=== PATIENT | female | born 1935 | race African-American/Black ===

== ENCOUNTER 2017-04-20 04:49 | Inpatient (IN) | payer OTHER ==
[~2017-04-20] VITALS: Ht 162.6 cm; Wt 49.0 kg
--- NOTE | ~2017-04-20 | EKG ---
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 CHAMPAGNE : 1935 Requested By: Philip Rajan Order Number: [id number] MD: Derrell Velez Measurements Intervals [place] Rate: 69 P: 80 IN: 134 QRS: 26 QRSD: 87 T: 39 QT: 362 QTc: 388 Interpretive Statements Sinus rhythm RSR' in V1 or V2, probably normal variant Baseline wander in lead(s) V5 No previous ECG available for comparison Electronically Signed On 04-20-2017 9:05:00 MACHINE SKIVER by Derrell Velez [email or web address] <ELECTRONICALLY SIGNED> By: Derrell Velez MD, [facility] 04/20/17904 0507 0507 Derrell Velez MD, [facility] /EPI
[~2017-04-20 04:49] MED LIST: ACIDOPHILUS1 EAC3 PO; ALAVERT10 MG PO; AZOR 5-20 MG T1 EACH PO; CALCIUM 500 +1 EAC4 PO; CALCIUM 600 +1 EAC1 PO; COD LIVER OIL1 EAC4 PO; FOLIC ACID 40400 MC1 PO; HYDROCODON-ACE1 EAC7 PO; HYDROXYCHLOROQ200 M1 PO; LOTREL 5-20 MG1 EACH PO; METHOTREXATE 22.5 M1 PO; METOPROLOL SUCC25 M1 PO; MULTIVITAMINS PO; PREDNISONE 1 MG1 M1 PO; TRAMADOL 50 MG50 MG PO; VITAMIN D31000 UNI2 PO
[2017-04-20 05:06] VITALS: BP 143/65
[2017-04-20 05:34] LABS: HEMATOCRIT 40.1 % (37.0-47.0); HEMOGLOBIN 13.1 gm/dL (12.0-15.0); MCH 27.1 pg (26.0-34.0); MCHC 32.7 g/dL (28.0-37.0); RBC 4.83 mil/uL (4.20-5.00); RDW 16.1 % (10.5-14.5); WBC 9.8 thou/uL (4.0-11.0)
[2017-04-20 05:42] LABS: ANION GAP 5 mmol/L (7-16); BUN 24 mg/dL (7-18); CALCIUM 10.6 mg/dL (8.5-10.1); CHLORIDE 102 mmol/L (98-107); CO2 30 mmol/L (21-32); CREATININE 1.1 mg/dL (0.6-1.0); GLUCOSE 93 mg/dL (74-106); POTASSIUM 4.2 mmol/L (3.5-5.1); SODIUM 137 mmol/L (136-145)
[2017-04-20 05:51] LABS: ALBUMIN 3.4 g/dL (3.4-5.0); LIPASE 1248 U/L (73-393); SGOT 20 U/L (15-37); SGPT 18 U/L (30-65); TOTAL BILIRUBIN 0.5 mg/dL (<0.1-1.0); TOTAL PROTEIN 7.8 g/dL (6.4-8.2); TROPONIN-I < 0.04 ng/mL (<0.06)
[2017-04-20 07:20] VITALS: BP 168/73
[2017-04-20 11:00] VITALS: BP 143/67
[2017-04-20 15:14] VITALS: BP 143/67
[2017-04-20 15:45] VITALS: BP 149/77
[2017-04-20 20:00] VITALS: BP 132/72
[2017-04-21 04:30] VITALS: BP 143/73
[2017-04-21 05:57] LABS: ABSOLUTE NEUTROPHILS 6.7 thou/uL (1.4-8.2); BASOPHILS 0.3 % (0.0-2.0); EOSINOPHILS 0.4 % (0.0-3.0); HEMATOCRIT 34.6 % (37.0-47.0); HEMOGLOBIN 11.6 gm/dL (12.0-15.0); LYMPHOCYTES 14.1 % (24.0-44.0); MCH 27.8 pg (26.0-34.0); MCHC 33.5 g/dL (28.0-37.0); MCV 83.1 fL (80.0-100.0); MONOCYTES 10.3 % (1.0-8.0); PLATELET COUNT 148 thou/uL (150-400); POLYS 74.9 % (36.0-66.0); RBC 4.17 mil/uL (4.20-5.00); RDW 16.4 % (10.5-14.5)
[2017-04-21 06:04] LABS: CALCIUM 8.8 mg/dL (8.5-10.1); MAGNESIUM 1.5 mg/dL (1.8-2.4); POTASSIUM 3.7 mmol/L (3.5-5.1)
[2017-04-21 08:36] VITALS: BP 131/67
[2017-04-21 13:15] VITALS: BP 143/71
[2017-04-21 17:03] VITALS: BP 143/82
[2017-04-21 20:15] VITALS: BP 153/70
[2017-04-22 03:40] VITALS: BP 141/79
[2017-04-22 05:30] LABS: ABSOLUTE NEUTROPHILS 9.6 thou/uL (1.4-8.2); BASOPHILS 0.3 % (0.0-2.0); EOSINOPHILS 0.2 % (0.0-3.0); HEMATOCRIT 37.1 % (37.0-47.0); HEMOGLOBIN 11.9 gm/dL (12.0-15.0); LYMPHOCYTES 8.6 % (24.0-44.0); MCV 84.2 fL (80.0-100.0); MONOCYTES 6.8 % (1.0-8.0); PLATELET COUNT 158 thou/uL (150-400); POLYS 84.1 % (36.0-66.0); RDW 16.4 % (10.5-14.5); WBC 11.4 thou/uL (4.0-11.0)
[2017-04-22 07:05] VITALS: BP 140/65
[2017-04-22 15:45] VITALS: BP 137/64
[2017-04-22] MEDS ORDERED: ZOFRAN ODT4 MG DISSOLVE (17:02)
[2017-04-22 17:27] VITALS: BP 137/64
[2017-04-22 17:43] VITALS: BP 137/64
[2017-08-29] MEDS ORDERED: PREDNISONE 5 MG5 M1 PO (14:31)
[2017-08-29] MEDS ORDERED: OMEPRAZOLE40 MG PO (14:33)
[2017-08-29] MEDS ORDERED: COLESTID5 GM PO (14:34)
[2017-08-29] MEDS ORDERED: METHOTREXATE 22.5 MG PO (14:34)
[2017-08-29] MEDS ORDERED: PEPCID40 MG PO (14:35)
== END 2017-04-22 18:33 | disposition home or self-care (01) | DRG 389 ==
LOC: ER 04:49 → EROBS 06:43 → 4E 06:43 → ENTRNSPT 04-22 18:13 → 4E 04-22 18:33
PROVIDERS: Emergency Medicine; Hospitalist; Nurse Practitioner
DX: K56.51 Intestinal adhesions [bands], with partial obstruction (principal); N17.9 Acute kidney failure, unspecified; K21.9 Gastro-esophageal reflux disease without esophagitis; M06.9 Rheumatoid arthritis, unspecified; E78.5 Hyperlipidemia, unspecified; K52.9 Noninfective gastroenteritis and colitis, unspecified; Z66 Do not resuscitate; I10 Essential (primary) hypertension; Z85.3 Personal history of malignant neoplasm of breast; Z90.49 Acquired absence of other specified parts of digestive tract; Z85.038 Personal history of other malignant neoplasm of large intestine; Z79.899 Other long term (current) drug therapy; Z87.891 Personal history of nicotine dependence; Z88.0 Allergy status to penicillin; Z88.8 Allergy status to other drugs, medicaments and biological substances
CPT/HCPCS: 10183

== ENCOUNTER → 2017-08-25 | Outpatient (CLI) | payer OTHER ==
[~2017-08-25] MED LIST changes: +COLESTID5 GM PO; +METHOTREXATE 22.5 MG PO; +OMEPRAZOLE40 MG PO; +PEPCID40 MG PO; +PREDNISONE 5 MG5 M1 PO; +ZOFRAN ODT4 MG DISSOLVE
--- NOTE | ~2017-08-25 | EKG ---
[address] [place] [address] ELECTROCARDIOGRAM REPORT Name: LORI ZAZUETA Room #: [facility]#: [id number] Admission: 08/25/17 Attend Phys: Kunal Marin MD Discharge: Date of : 37 Report #: [id number] THIS REPORT FOR: //name// [facility] [place] Test Date: 2017-08-25 Test Time: 13:11:15 Pat Name: LORI ZAZUETA Department: Room: Gender: F Plastic Technician: Barbara SÁNCHEZ : 1935 Requested By: Kunal Marin Order Number: [id number] MD: Derrell Velez Measurements Intervals [place] Rate: 62 P: 70 IA: 131 QRS: 56 QRSD: 81 T: 46 QT: 387 QTc: 393 Interpretive Statements Sinus rhythm Atrial premature complexes Borderline low voltage, extremity leads Compared to ECG 04/20/2017 05:07:44 Atrial premature complex(es) now present Electronically Signed On 08-26-2017 7:30:13 CDT by Derrell Velez [email or web address] <ELECTRONICALLY SIGNED> By: Derrell Velez MD, [facility] 08/26/17 07 10 10 Derrell Velez MD, [facility] /EPI
== END ==
LOC: CV 12:36
DX: I10 Essential (primary) hypertension (principal)

== ENCOUNTER 2017-08-30 05:27 | Day surgery (SDC) | payer OTHER ==
[~2017-08-30] VITALS: Ht 165.1 cm; Wt 40.4 kg
[2017-08-30 08:42] LABS: HEMOGLOBIN 12.1 gm/dL (12.0-15.0); MCH 30.1 pg (26.0-34.0); MCHC 33.6 g/dL (28.0-37.0); MCV 89.7 fL (80.0-100.0); RBC 4.01 mil/uL (4.20-5.00); RDW 19.7 % (10.5-14.5); WBC 5.3 thou/uL (4.0-11.0)
[2017-08-30 08:55] LABS: CALCIUM 8.8 mg/dL (8.5-10.1); CREATININE 1.1 mg/dL (0.6-1.0); POTASSIUM 3.8 mmol/L (3.5-5.1)
[2017-08-30 09:01] LABS: ALBUMIN 3.3 g/dL (3.4-5.0); TOTAL BILIRUBIN 0.6 mg/dL (<0.1-1.0); TOTAL PROTEIN 6.5 g/dL (6.4-8.2)
[2017-08-30 09:27] VITALS: BP 129/70
[2017-08-30 11:30] VITALS: BP 129/70
== END 2017-08-30 12:30 | disposition home or self-care (01) ==
LOC: OR 05:27 → TBA 05:28 → OR 12:30
PROVIDERS: Surgery
DX: Z45.2 Encounter for adjustment and management of vascular access device (principal); K56.690 Other partial intestinal obstruction; E43 Unspecified severe protein-calorie malnutrition; I10 Essential (primary) hypertension; D64.9 Anemia, unspecified; K52.9 Noninfective gastroenteritis and colitis, unspecified; E78.5 Hyperlipidemia, unspecified; K21.9 Gastro-esophageal reflux disease without esophagitis; M06.9 Rheumatoid arthritis, unspecified; Z90.49 Acquired absence of other specified parts of digestive tract; Z98.0 Intestinal bypass and anastomosis status; Z87.891 Personal history of nicotine dependence; Z85.038 Personal history of other malignant neoplasm of large intestine; Z98.890 Other specified postprocedural states; Z85.3 Personal history of malignant neoplasm of breast; Z79.899 Other long term (current) drug therapy; Z88.0 Allergy status to penicillin; Z88.8 Allergy status to other drugs, medicaments and biological substances
CPT/HCPCS: 50010; 50101; 50386; 50403; 51938; 54118; 56524; 56525; 62110; 62850; 70005

== ENCOUNTER 2017-09-07 12:35 | Inpatient (IN) | payer OTHER ==
[~2017-09-07] VITALS: Ht 152.4 cm; Wt 50.1 kg
[2017-09-07 13:10] VITALS: BP 106/48
[2017-09-07] MEDS ORDERED: PREDNISONE 1 MG1 M1 PO (13:23)
[2017-09-07] MEDS ORDERED: CIMZIA400 MG/2 M SUBQ (13:24)
[2017-09-07] MEDS ORDERED: ZYRTEC10 M4 PO (13:26)
[2017-09-07] MEDS ORDERED: ZOFRAN ODT4 MG DISSOLVE (13:52)
[2017-09-07] MEDS ORDERED: PEPCID20 MG PO (13:52)
[2017-09-07 15:03] LABS: ABSOLUTE NEUTROPHILS 4.2 thou/uL (1.4-8.2); BASOPHILS 0.4 % (0.0-2.0); EOSINOPHILS 0.2 % (0.0-3.0); HEMATOCRIT 30.3 % (37.0-47.0); HEMOGLOBIN 10.3 gm/dL (12.0-15.0); LYMPHOCYTES 8.1 % (24.0-44.0); MCH 30.7 pg (26.0-34.0); MCV 90.4 fL (80.0-100.0); MONOCYTES 3.1 % (1.0-8.0); PLATELET COUNT 41 thou/uL (150-400); POLYS 88.2 % (36.0-66.0); RBC 3.36 mil/uL (4.20-5.00); RDW 18.4 % (10.5-14.5); WBC 4.7 thou/uL (4.0-11.0)
[2017-09-07 15:06] LABS: CALCIUM 8.6 mg/dL (8.5-10.1); CREATININE 1.1 mg/dL (0.6-1.0)
[2017-09-07 15:12] LABS: ALBUMIN 2.9 g/dL (3.4-5.0); TOTAL BILIRUBIN 0.7 mg/dL (<0.1-1.0); TOTAL PROTEIN 5.6 g/dL (6.4-8.2)
[2017-09-07 15:13] LABS: URINE BILIRUBIN NEGATIVE (Negative); URINE BLOOD NEGATIVE (Negative); URINE CLARITY CLEAR; URINE COLOR YELLOW; URINE GLUCOSE-RANDOM* NEGATIVE (Negative); URINE KETONES NEGATIVE (Negative); URINE LEUKOCYTES-REFLEX NEGATIVE (Negative); URINE NITRITE-REFLEX NEGATIVE (Negative); URINE PROTEIN (DIPSTICK) NEGATIVE (Negative); URINE SPECIFIC GRAVITY 1.025 (1.005-1.035); URINE UROBILINOGEN 0.2 E.U./dl (0.2-1.0)
[2017-09-07 15:43] LABS: PHOSPHORUS 3.1 mg/dL (2.5-4.9)
[2017-09-07 16:18] VITALS: BP 129/51
[2017-09-07 19:35] VITALS: BP 136/68
[2017-09-08 04:45] VITALS: BP 140/60
[2017-09-08 04:48] LABS: PHOSPHORUS 2.5 mg/dL (2.5-4.9)
[2017-09-08 07:30] VITALS: BP 144/63
[2017-09-08 09:33] LABS: CALCIUM 7.9 mg/dL (8.5-10.1); POTASSIUM 3.9 mmol/L (3.5-5.1)
[2017-09-08 20:23] VITALS: BP 127/82
[2017-09-09 07:15] VITALS: BP 130/71
[2017-09-09 07:25] LABS: CALCIUM 8.4 mg/dL (8.5-10.1); CREATININE 0.8 mg/dL (0.6-1.0); MAGNESIUM 1.7 mg/dL (1.8-2.4); POTASSIUM 3.7 mmol/L (3.5-5.1)
[2017-09-09 12:08] VITALS: BP 130/71
[2017-09-09 19:56] VITALS: BP 133/79
[2017-09-10 05:26] LABS: CALCIUM 7.8 mg/dL (8.5-10.1); CREATININE 0.8 mg/dL (0.6-1.0); MAGNESIUM 1.7 mg/dL (1.8-2.4); PHOSPHORUS 2.1 mg/dL (2.5-4.9); POTASSIUM 4.2 mmol/L (3.5-5.1)
[2017-09-10 07:45] VITALS: BP 127/63
[2017-09-10 20:45] VITALS: BP 139/59
[2017-09-11 06:26] LABS: CREATININE 0.9 mg/dL (0.6-1.0); MAGNESIUM 1.9 mg/dL (1.8-2.4); PHOSPHORUS 2.5 mg/dL (2.5-4.9); POTASSIUM 3.7 mmol/L (3.5-5.1)
[2017-09-11 08:09] VITALS: BP 122/69
[2017-09-11 20:42] VITALS: BP 116/62
[2017-09-12 08:23] VITALS: BP 143/74
[2017-09-12 08:33] LABS: CALCIUM 8.4 mg/dL (8.5-10.1); CREATININE 0.8 mg/dL (0.6-1.0); MAGNESIUM 1.7 mg/dL (1.8-2.4); PHOSPHORUS 2.7 mg/dL (2.5-4.9); POTASSIUM 3.6 mmol/L (3.5-5.1)
[2017-09-12 20:05] VITALS: BP 139/69
[2017-09-13 07:35] VITALS: BP 115/68
[2017-09-13 08:13] LABS: CALCIUM 7.9 mg/dL (8.5-10.1); CREATININE 0.7 mg/dL (0.6-1.0); PHOSPHORUS 2.7 mg/dL (2.5-4.9); POTASSIUM 3.6 mmol/L (3.5-5.1)
[2017-09-13 13:28] VITALS: BP 130/71
[2017-09-13 19:47] VITALS: BP 122/72
[2017-09-14 04:57] LABS: CALCIUM 7.9 mg/dL (8.5-10.1); CREATININE 0.9 mg/dL (0.6-1.0); POTASSIUM 3.7 mmol/L (3.5-5.1)
[2017-09-14 05:01] LABS: MAGNESIUM 1.8 mg/dL (1.8-2.4); PHOSPHORUS 3.2 mg/dL (2.5-4.9)
[2017-09-14 08:25] VITALS: BP 114/59
[2017-09-14 20:08] VITALS: BP 102/61
[2017-09-15 05:57] LABS: ALBUMIN 2.2 g/dL (3.4-5.0); CREATININE 0.8 mg/dL (0.6-1.0); MAGNESIUM 1.9 mg/dL (1.8-2.4); PHOSPHORUS 3.1 mg/dL (2.5-4.9); TOTAL BILIRUBIN 0.3 mg/dL (<0.1-1.0); TOTAL PROTEIN 4.8 g/dL (6.4-8.2)
[2017-09-15 07:20] VITALS: BP 112/66
[2017-09-15 21:38] VITALS: BP 129/64
[2017-09-16 06:01] LABS: CALCIUM 7.8 mg/dL (8.5-10.1); CREATININE 0.8 mg/dL (0.6-1.0); MAGNESIUM 2.1 mg/dL (1.8-2.4); PHOSPHORUS 2.4 mg/dL (2.5-4.9); POTASSIUM 4.3 mmol/L (3.5-5.1)
[2017-09-16 07:20] VITALS: BP 114/62
[2017-09-16 19:26] VITALS: BP 107/55
[2017-09-17 06:34] LABS: CALCIUM 8.1 mg/dL (8.5-10.1); CREATININE 0.9 mg/dL (0.6-1.0); MAGNESIUM 2.4 mg/dL (1.8-2.4); PHOSPHORUS 2.7 mg/dL (2.5-4.9); POTASSIUM 4.4 mmol/L (3.5-5.1)
[2017-09-17 07:53] VITALS: BP 115/62
== END 2017-09-17 14:06 | disposition home health service (06) | DRG 391 ==
LOC: 2N 12:35 → SICU 09-08 15:59
PROVIDERS: Hospitalist; Internal Medicine; Nurse Practitioner
PROC: 3E0336Z Introduction of Nutritional Substance into Peripheral Vein, Percutaneous Approach (ICD-10-PCS; principal; 2017-09-07)
DX: K91.2 Postsurgical malabsorption, not elsewhere classified (principal); E43 Unspecified severe protein-calorie malnutrition; N17.9 Acute kidney failure, unspecified; I42.9 Cardiomyopathy, unspecified; R62.7 Adult failure to thrive; M06.9 Rheumatoid arthritis, unspecified; K21.9 Gastro-esophageal reflux disease without esophagitis; D69.6 Thrombocytopenia, unspecified; E16.2 Hypoglycemia, unspecified; E83.42 Hypomagnesemia; Z66 Do not resuscitate; E83.39 Other disorders of phosphorus metabolism; I10 Essential (primary) hypertension; E78.5 Hyperlipidemia, unspecified; K52.9 Noninfective gastroenteritis and colitis, unspecified; Z85.038 Personal history of other malignant neoplasm of large intestine; Z85.3 Personal history of malignant neoplasm of breast; Z88.0 Allergy status to penicillin; Z88.8 Allergy status to other drugs, medicaments and biological substances; Z79.899 Other long term (current) drug therapy; Z90.49 Acquired absence of other specified parts of digestive tract; Z92.3 Personal history of irradiation; Z87.891 Personal history of nicotine dependence; Z68.21 Body mass index [BMI] 21.0-21.9, adult
CPT/HCPCS: 10797; 15002

== ENCOUNTER 2017-09-19 02:36 | Emergency (ER) | payer OTHER ==
[~2017-09-19] VITALS: Ht 162.6 cm; Wt 50.4 kg
--- NOTE | ~2017-09-19 | EKG ---
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 : 1935 Requested By: Karen Pena Order Number: [id number] MD: Derrell Velez Measurements Intervals [place] Rate: 72 P: 71 PA: 130 QRS: 37 QRSD: 82 T: 55 QT: 368 QTc: 403 Interpretive Statements Sinus rhythm Borderline low voltage, extremity leads Compared to ECG 08/25/2017 13:11:15 Atrial premature complex(es) no longer present Electronically Signed On 09-19-2017 8:45:32 CDT by Derrell Velez [email or web address] <ELECTRONICALLY SIGNED> By: Derrell Velez MD, [facility] 09/19/17 0845 9 9 Derrell Velez MD, [facility] /EPI
[~2017-09-19 02:36] MED LIST changes: +CIMZIA400 MG/2 M SUBQ; +PEPCID20 MG PO; +ZYRTEC10 M4 PO
[2017-09-19 03:17] LABS: HEMATOCRIT 27.8 % (37.0-47.0); HEMOGLOBIN 9.3 gm/dL (12.0-15.0); MCH 30.9 pg (26.0-34.0); MCHC 33.5 g/dL (28.0-37.0); MCV 92.3 fL (80.0-100.0); PLATELET COUNT 139 thou/uL (150-400); RBC 3.02 mil/uL (4.20-5.00); RDW 19.3 % (10.5-14.5); WBC 7.2 thou/uL (4.0-11.0)
[2017-09-19 03:25] LABS: CALCIUM 9.2 mg/dL (8.5-10.1); CREATININE 0.8 mg/dL (0.6-1.0); POTASSIUM 4.9 mmol/L (3.5-5.1)
[2017-09-19 03:34] LABS: TROPONIN-I 0.06 ng/mL (<0.06)
[2017-09-19 04:19] LABS: URINE BILIRUBIN NEGATIVE (Negative); URINE BLOOD NEGATIVE (Negative); URINE CLARITY CLEAR; URINE COLOR YELLOW; URINE GLUCOSE-RANDOM* NEGATIVE (Negative); URINE KETONES NEGATIVE (Negative); URINE LEUKOCYTES NEGATIVE (Negative); URINE NITRITE NEGATIVE (Negative); URINE PROTEIN (DIPSTICK) NEGATIVE (Negative); URINE SPECIFIC GRAVITY 1.015 (1.005-1.035); URINE UROBILINOGEN 0.2 E.U./dl (0.2-1.0)
[2017-09-19 04:30] LABS: ABSOLUTE NEUTROPHILS 4.8 thou/uL (1.4-8.2); ANISOCYTOSIS 2+
[2017-09-19 04:31] LABS: POLYCHROMASIA 1+
== END 2017-09-19 05:00 | disposition home or self-care (01) ==
LOC: ER 02:36
PROVIDERS: Emergency Medicine
DX: R60.0 Localized edema (principal); E46 Unspecified protein-calorie malnutrition; N18.3 Chronic kidney disease, stage 3 (moderate); E78.5 Hyperlipidemia, unspecified; M06.9 Rheumatoid arthritis, unspecified; R19.7 Diarrhea, unspecified; Z87.891 Personal history of nicotine dependence; Z88.0 Allergy status to penicillin; Z88.8 Allergy status to other drugs, medicaments and biological substances; Z85.038 Personal history of other malignant neoplasm of large intestine; Z85.3 Personal history of malignant neoplasm of breast; Z90.49 Acquired absence of other specified parts of digestive tract

== ENCOUNTER 2018-02-26 22:33 | Inpatient (IN) | payer OTHER ==
[~2018-02-26] VITALS: Ht 162.6 cm; Wt 55.8 kg
--- NOTE | ~2018-02-26 | HC ---
[facility] [place] [address] CONSULTATION Name: LORI ZAZUETA Room #: 363-P [facility] IN ..#: [id number] Admission: 02/26/18 Attend Phys: Sarah Alexandra Discharge: Date of : 37 Report #: [id number] THIS REPORT FOR: //name// CC: YSABEL physician/PCP Sarah Alexandra DATE OF SERVICE: 03/03/2018 HISTORY OF PRESENT ILLNESS: The patient is an 82-year-old -[place] female admitted with nausea, diarrhea. She has premorbid short gut syndrome and she has been on TPN at bedtime since last August. She was diagnosed with sepsis, pneumonia, and leuxt-jq-tshjxxb anemia. She does have a prior history of rheumatoid arthritis and is on methotrexate. She was seen by Surgery and felt to be too high risk for further surgery. Her stomach has not been decompressed with an NG tube, which was placed yesterday. She continues on TPN. Goal is once the NG tube was able to be removed that she would be started on a liquid diet. We are seeing her in rehabilitation medicine consultation. PAST MEDICAL HISTORY: Includes prior small-bowel obstruction with hemicolectomy, history of stress incontinent, chronic kidney disease stage 3. She had the breast CA and colon CA as noted above. Malnutrition with short gut syndrome, cachexia, rheumatoid arthritis on methotrexate, and chronic steroid usage. ALLERGIES: PENICILLIN AND SCOPOLAMINE. MEDICATIONS: Please see the full medication listing. This includes vitamins, herbals, and supplements. SOCIAL HISTORY: She lives in a house by herself, 5 steps in, premorbidly utilized a cane. There is a sister that lives in the area as well as her daughter and son-in-law. Daughter was visiting here. Plan is for the patient to go to the daughter's house once the patient is further medically stabilized. The daughter and son-in-law work different shifts. The patient was not on O2 premorbidly. REVIEW OF SYSTEMS: No current complaints of chest pain or shortness of breath. No current abdominal pain. She has had a past history of some dizziness. No current complaints. Complains of some overall generalized weakness, but no focal extremity pain complaints other than some of her chronic arthritic pain. With her history of rheumatoid arthritis. PHYSICAL EXAMINATION: GENERAL: She is a pleasant, thin 82-year-old -[place] female, appeared somewhat younger than stated age. VITAL SIGNS: Last recorded temperature 98.6, pulse 84, respirations 16, blood [address] [address] CONSULTATION Name: LORI ZAZUETA Room #: 363-P [facility] IN [facility]#: [id number] Admission: 02/26/18 Attend Phys: Sarah Alexandra Discharge: Date of : 37 Report #: [id number] pressure 154/83. She is alert, pleasant, and oriented. HEENT: Appeared to be benign. NEUROLOGIC: Cranial nerves are grossly intact. She is on 2 liters nasal cannula. She has some chronic arthritic changes of her hands. Functional range of motion of both upper extremities. Strength is grade 4-/5. She does have the NG tube currently in place. Lower extremities, no focal calf swelling, functional range of motion, strength is grade 4- to 3+/5. DTRs are trace to 1. She has been able to sit to stand with min assist and gait was 20 feet with front-wheeled walker with min assist. ASSESSMENT: An 82-year-old -[place] female with the following problem list: 1. Medical complexity with generalized debilitation. 2. Sepsis. 3. Pneumonia. 4. Bgjax-jy-aotsgvp anemia. 5. Short gut syndrome with premorbid continuing bedtime TPN usage. 6. Decompression of the stomach with NG tube placed yesterday, surgery is involved. 7. History of malnutrition with short gut syndrome. 8. Cachexia. 9. Rheumatoid arthritis, on methotrexate. 10. Chronic steroid usage. 11. History of colon cancer. 12. History of breast cancer. PLAN: We typically do not take patients that have NG tubes upon rehabilitation nor do we take patients on TPN. The patient is being seen in therapies and is to continue working on improving strength and endurance. At this point, we will continue to follow along with you regarding her rehab/therapy needs. Thank you for asking us to assist in this patient's care. By: 1204 1348 Christopher Frye MD /PEPE
[2018-02-26 22:34] VITALS: BP 116/47
[2018-02-26 22:56] LABS: ABSOLUTE NEUTROPHILS 13.3 thou/uL (1.4-8.2); BASOPHILS 0.1 % (0.0-2.0); EOSINOPHILS 0.3 % (0.0-3.0); HEMOGLOBIN 7.6 gm/dL (12.0-15.0); MCH 28.2 pg (26.0-34.0); MCHC 33.1 g/dL (28.0-37.0); MCV 85.2 fL (80.0-100.0); MONOCYTES 0.8 % (1.0-8.0); PLATELET COUNT 57 thou/uL (150-400); POLYS 97.8 % (36.0-66.0); RDW 17.2 % (10.5-14.5); WBC 13.6 thou/uL (4.0-11.0)
[2018-02-26 23:07] LABS: CALCIUM 8.4 mg/dL (8.5-10.1); CREATININE 1.6 mg/dL (0.6-1.0); POTASSIUM 4.6 mmol/L (3.5-5.1)
[2018-02-26 23:11] LABS: ALBUMIN 2.2 g/dL (3.4-5.0); DIRECT BILIRUBIN 0.2 mg/dL (<0.1-0.3); TOTAL BILIRUBIN 0.8 mg/dL (<0.1-1.0); TOTAL PROTEIN 5.6 g/dL (6.4-8.2)
[2018-02-27] VITALS (8 sets, daily range): BP systolic 90–147; BP diastolic 41–79
[2018-02-27] MEDS ORDERED: PROTONIX40 M2 PO (01:04)
[2018-02-27] MEDS ORDERED: FOLIC ACID1 MG PO (01:05)
--- NOTE | 2018-02-27 03:03 | NUR ---
ASSUMED CARE OF PATIENT FROM ER. FAMILY AT BEDSIDE. REMAINS FEBRILE. ANTIBIOTICS INFUSING, WELL FLUIDS. ADMISSION COMPLETE WELL MED REC. POC GOALS ESTABLISHED.
--- NOTE | 2018-02-27 08:29 | EKG ---
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 Management Architect: Lynda CHAMPAGNE : 1935 Requested By: Donis Jasso Order Number: [id number] MD: Derrell Velez Measurements Intervals [place] Rate: 114 P: 106 IL: 116 QRS: 67 QRSD: 78 T: 95 QT: 289 QTc: 398 Interpretive Statements Sinus tachycardia RSR' in V1 or V2, right VCD Nonspecific T abnormalities, lateral leads Compared to ECG 09/19/2017 03:10:46 RSR' in V1 or V2 now present T-wave abnormality now present Electronically Signed On 02-27-2018 8:29:19 FLYER BUILDER by Derrell Velez [email or web address] <ELECTRONICALLY SIGNED> By: Derrell Velez MD, [facility] 02/27/18 0829 38 38 Derrell Velez MD, [facility] /EPI
[2018-02-27 09:01] LABS: URINE BILIRUBIN NEGATIVE (Negative); URINE BLOOD NEGATIVE (Negative); URINE CLARITY CLEAR; URINE COLOR YELLOW; URINE GLUCOSE-RANDOM* NEGATIVE (Negative); URINE KETONES NEGATIVE (Negative); URINE LEUKOCYTES-REFLEX NEGATIVE (Negative); URINE NITRITE-REFLEX NEGATIVE (Negative); URINE PROTEIN (DIPSTICK) NEGATIVE (Negative); URINE UROBILINOGEN 0.2 E.U./dl (0.2-1.0)
--- NOTE | 2018-02-27 09:15 | NUR ---
ASSUMMED PT CARE AT APPROXIMATELY 0315. PT THIS AM STATING THAT SHE WAS "FEELING JUST FINE." DENIED ANY SOA WHILE AT REST. 02 AT 3L PER NC. DENIED ANY NEEDS AT THAT TIME.
--- NOTE | 2018-02-27 11:16 | NUR ---
PT ADMITTED RELATED TO N/V/D, CAP, AND SEVER SEPSIS. CM REVIEWED CHART AND SPOKE WITH CARE TEAM. CM MET WITH PT AT BEDSIDE THIS DAY. PT IS A&O X4. CM ROLE INTRODUCED. PT INDICATED SHE LIVES ALONE IN A HOUSE WITH 5 STEPS TO ENTER AND 5 STEPS TO SECOND LEVEL BEDROOM. PT INDICATED SHE HAS A CANE TO ASSIST WITH MOBILITY BUT HAD BEEN INDEPENDET PRIOR TO ONSET OF ILLNESS. PT INDICATED SHE HAD [facility] IN THE PAST. PT INDICATED THAT HER SISTER HAD BEEN STAYING WITH HER AND WILL ALSO DO SO UPON DC. PT INDICATED SHE PLANS TO RETURN HOME ONCE MEDICALLY STABLE. CM TO FOLLOW INDICATED WITH DC PLANNING.
--- NOTE | 2018-02-27 18:33 | NUR ---
WALKED PATIENT AROUND UNIT WITHOUT OXYGEN AND SHE DID WELL WITHOUT SOB. TITRATED OFF OXYGEN AND OXYGEN SAT HAS REMAINED AT 100%. SHE DID HAVE A BM TODAY AND IT WAS FORMED. SHE WILL BE HAVING TPN AT BEDTIME. WILL CONT WITH PLAN OF CARE.
[2018-02-28 05:30] VITALS: BP 175/89
[2018-02-28 06:15] VITALS: BP 155/78
[2018-02-28 06:59] LABS: ABSOLUTE RETIC COUNT 0.0305 10^6/uL; HEMATOCRIT 24.6 % (37.0-47.0); HEMOGLOBIN 8.3 gm/dL (12.0-15.0); MCH 29.5 pg (26.0-34.0); MCHC 33.8 g/dL (28.0-37.0); MCV 87.4 fL (80.0-100.0); OBSERVED RETIC COUNT 1.09 % (0.6-2.6); RBC 2.81 mil/uL (4.20-5.00); RDW 18.2 % (10.5-14.5); WBC 19.3 thou/uL (4.0-11.0)
[2018-02-28 07:04] LABS: CALCIUM 8.5 mg/dL (8.5-10.1); CREATININE 1.6 mg/dL (0.6-1.0); POTASSIUM 5.4 mmol/L (3.5-5.1)
[2018-02-28 07:09] LABS: % SATURATION 20 % (20-39); IRON 36 ug/dL (50-170); TIBC 179 ug/dL (250-450)
--- NOTE | 2018-02-28 08:11 | NUR ---
PT MAKING PROGRESS TOWARDS GOALS. ON ROOM AIR THROUGHOUT THE NIGHT. CONTINUOUS PULSE OXIMETER IN PLACE WITH O2 SATS TYPICALLY 97-98%. LUNGS CLEAR, DIMINISHED IN ALL LOBES UPON INITIAL ASSESSMENT. COARSNESS NOTED OVER BL UPPER LOBES THIS AM. PT REPORTS MINIMAL YELLOWING SPUTUM THAT IS OCCASIONALLY BLOOD TINGTED. DID ALSO C/O DRY NOSE AND REQUESTED OCEAN SPRAY. THIS WAS PROVIDED TO PT.
[2018-02-28 08:16] VITALS: BP 169/84
[2018-02-28 12:02] VITALS: BP 146/81
[2018-02-28 15:25] VITALS: BP 148/85
--- NOTE | 2018-02-28 17:15 | NUR ---
PT ALERT AND ORIENTED TIMES THREE. HR 140/150 THIS AFTERNOON AFTER WALKING AROUND THE UNIT FOR ONE HOUR. NOTIFIED CARDIZEM 30MG PO ORDERED AND GIVEN, WITH NO RELEIF. DR NOTIFIED LOPRESSOR 5MG IV ORDERED AND GIVEN. PT HR NOW 93. OTHER VVS. IVF INFUSING PER ORDER. PT DENIES PAIN/SOA. PT TOLERATES MEDS AND MEALS. PT UP WALKING THE HALLWAYS WITH STANDBY ASSIST. PT DAUGHTER AT BEDSIDE FOR MOST OF THE DAY. PT SLOWLY PROGRESSING TOWARMONDS POC GOALS.
[2018-02-28 20:33] VITALS: BP 162/85
[2018-03-01] VITALS (9 sets, daily range): BP systolic 68–193; BP diastolic 75–101
[2018-03-01 04:24] LABS: HEMOGLOBIN 8.8 gm/dL (12.0-15.0); MCH 28.8 pg (26.0-34.0); MCHC 33.7 g/dL (28.0-37.0); MCV 85.4 fL (80.0-100.0); RBC 3.04 mil/uL (4.20-5.00); RDW 18.2 % (10.5-14.5); WBC 27.1 thou/uL (4.0-11.0)
--- NOTE | 2018-03-01 04:26 | NUR ---
Patient making slow progress towards outcome goals. Short of air and very winded with any activity. Expiratory wheezes, cough starting to be productive yellow. Oxygen at 2L/NC. Vital signs stable. Rhythm sinus, tachy low 100's with activity. Denies pain. Weak but steady gait. Calls out appropriately for needs. Fall precautions in place.
[2018-03-01 04:42] LABS: CALCIUM 8.7 mg/dL (8.5-10.1); CREATININE 1.3 mg/dL (0.6-1.0); POTASSIUM 4.6 mmol/L (3.5-5.1)
--- NOTE | 2018-03-01 06:30 | NUR ---
Tachpneic, wheezing SBP 190's. O2 sat 90%. Breathing improved after breathing treatment, sat 92%. Scheduled Solumedrol and Cardizem given SBP down to 170's. Then patient had a 10 beat run of vtach and tachy rate up to 140. Reported to Dutch Kelly NP wit orders. Metoprolol IV given x1. Will coninue to monitor response.
--- NOTE | 2018-03-01 07:00 | NUR ---
Heart rate back down to 90's about 30 minutes after one dose of Metoprolol. Daughters Rupa and Shante informed.
--- NOTE | 2018-03-01 14:53 | NUR ---
dp faxed referral to [facility], case management to follow up.
--- NOTE | 2018-03-01 18:42 | NUR ---
ASSUMED PATIENT CARE AT 0715. A&OX4. NO COMPLAINTS OF PAIN. SOA WITH AMBULATION. VOIDING PER COMMODE. PATIENT IN SVT IN THE MORNING. IV LOPRESSER GIVEN. MED ORDERED PRN. ON ROOM AIR WITH SATS IN THE MID 90S. PORT ACCESS CHANGED TODAY. CXR TODAY SEE RESULTS. ANTIBIOTICS CHANGED. ID CONSULTED. NPO EXCEPT FOR MEDS. ST MADE DIET ORDER RECOMMENDATION. FAMILY AT BEDSIDE MOST OF THE DAY. WORKING TOWARD DC GOALS.
[2018-03-02 04:37] LABS: HEMATOCRIT 27.2 % (37.0-47.0); HEMOGLOBIN 8.9 gm/dL (12.0-15.0); MCH 27.4 pg (26.0-34.0); MCHC 32.6 g/dL (28.0-37.0); MCV 84.2 fL (80.0-100.0); RBC 3.23 mil/uL (4.20-5.00); RDW 17.4 % (10.5-14.5); WBC 20.9 thou/uL (4.0-11.0)
[2018-03-02 04:47] LABS: ALBUMIN 2.4 g/dL (3.4-5.0); CALCIUM 9.1 mg/dL (8.5-10.1); CREATININE 1.3 mg/dL (0.6-1.0); POTASSIUM 4.4 mmol/L (3.5-5.1)
[2018-03-02 04:55] VITALS: BP 181/85
[2018-03-02 05:56] LABS: BE(vivo) -8.6 mmol/L (-2 to +3); HCO3 15.6 mmol/L (22.0-26.0); pH 7.365 (7.360-7.450); sO2 92.2 % (92.0-98.0)
[2018-03-02 07:29] VITALS: BP 179/98
--- NOTE | 2018-03-02 10:14 | HC ---
[facility] [place] [address] CONSULTATION Name: LORI ZAZUETA Room #: 363-P [facility] IN M.R.#: [id number] Admission: 02/26/18 Attend Phys: Sarah Alexandra Discharge: Date of : 37 Report #: [id number] THIS REPORT FOR: //name// CC: YSABEL physician/PCP Sarah Alexandra INFECTIOUS DISEASE CONSULTATION HISTORY OF PRESENT ILLNESS: An 82-year-old -Citizen [place] woman admitted with febrile illness and possible right-sided pneumonia, initially treated with ceftriaxone and Zithromax. Today, it was changed to meropenem after an episode of emesis and coughing spells yesterday. 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 The patient also had short bowel syndrome and requiring nocturnal TPN for sometime already. The patient currently feeling some better, but is mainly complaining of significant sore throat. PAST MEDICAL HISTORY: Previous lumpectomy for cancer. Status post Port-A-Cath. She did have surgery by Dr. 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 The patient is on treatment for rheumatoid arthritis with methotrexate and prednisone by Dr. Iniguez. There is a history of cholecystectomy and hypertension. Thrombocytopenia is noted on this admission as well. DRUG ALLERGIES: PENICILLINS, SCOPOLAMINE, THEY CAUSE RASHES. MEDICATIONS: She is started on meropenem 1 g IV every 12 hours today. She is on metoprolol, diltiazem, methylprednisolone 62.5 mg IV every 12 hours, insulin lispro, p.r.n. glucose and glucagon, TPN nocturnal, amlodipine, pantoprazole, Atrovent and albuterol inhalation treatments, acetaminophen p.r.n., ondansetron p.r.n., Zithromax and ceftriaxone both discontinued. SOCIAL HISTORY: See H and P and old records. FAMILY HISTORY: See H and P and old records. REVIEW OF SYSTEMS: Episode of coughing after emesis yesterday, suspect aspiration; persistent sore throat. PHYSICAL EXAMINATION: GENERAL: Chronically ill-appearing woman. VITAL SIGNS: Temperature on admission 102.7, this is resolved and now her temperature is 97.7, pulse 99, respirations 26, BP 186/96. Height is 5 feet 4 inches, weight 123 pounds, O2 saturation is 93% on 1 liter. She initially required 3 liters oxygen nasal cannula, possibly improving now. [address] [address] CONSULTATION Name: LORI ZAZUETA Lynda Room #: 363-P ADM IN M.R.#: [id number] Admission: 02/26/18 Attend Phys: Sarah Alexandra Discharge: Date of : 37 Report #: [id number] HEENMT: Upper plate, lower bridge, arcus cornealis heavy, pharyngeal inflammation. NECK: Supple. No thyromegaly. CHEST: Left-sided Port-A-Cath. We will re-access the site today. This has been done every Tuesday. LUNGS: Decreased breath sounds right base. HEART: S1, S2. No gallop or murmur. ABDOMEN: Soft, no masses or megaly. PELVIC AND RECTAL: Deferred. EXTREMITIES: No clubbing or cyanosis. NEUROLOGIC: Grossly within normal limits. LABORATORY DATA: Revealed following abnormals. On admission, she is hyponatremic, this resolved today. Calcium 5.4 yesterday, this resolved today. Glucose 374, CO2 low at 17 millimoles per liter. The BUN and creatinine are improving, today BUN is 51 and creatinine 1.3. Serum iron 36, iron binding capacity 179. White blood cell count revealed to be 27,100, hemoglobin 8.8 g/dL and platelets 134,000. No differential done today. The procalcitonin significantly elevated 96.02 ng/mL. Urinalysis negative. MICROBIOLOGY DATA: Sputum pending, stool culture pending, blood culture 2 samples positive with gram-negative organism. IMAGING: Chest x-ray that ordered for today is still pending. The chest x-ray done on 02/26 revealed Port-A-Cath and right-sided pulmonary infiltrates. ASSESSMENT: 1. Worsening leukocytosis, undetermined etiology, possibly due to recurrent aspiration pneumonia. 2. Right-sided pulmonary infiltrates ? interstitial in nature. 3. Worsening leukocytosis, persistent anemia and improving thrombocytopenia. 4. Gram-negative jyoti bacteremia, possibly secondary to above versus Port-A-Cath. 5. Chronic kidney disease. 6. 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 7. Rheumatoid arthritis on methotrexate and prednisone. 8. Immunosuppressive host secondary to above. SUGGESTIONS: Recommend, since she is having significant sore throat, we will obtain viral upper respiratory panel. I completely agree with meropenem. Continue this drug. Continue Solu-Medrol intravenously, avoid methotrexate. [facility] [address] [place] [address] CONSULTATION Name: LORI ZAZUETA Room #: 363-P ADM IN M.R.#: [id number] Admission: 02/26/18 Attend Phys: Sarah Alexandra Discharge: Date of : 37 Report #: [id number] Alexandra, thank you for requesting my suggestions in the care of your patient. <ELECTRONICALLY SIGNED> By: Robert Sykes MD 03/02/18 1014 1117 1313 Robert Sykes MD /nt
[2018-03-02 11:37] VITALS: BP 159/80
--- NOTE | 2018-03-02 14:57 | NUR ---
Dr. Sykes rounded on patient. States to this RN he thinks she needs to be transferred to ICU due to ABGs and lactate. Might also need pulmonary consult. Updated Dr. Alexandra - states does not need to transfer to ICU. Vitals are stable, breathing appears better than this morning. Denies need for pulmonary consult. May transfer to CCU - asked physician if CCU would be monitoring any differently than this current floor and he states no. Patient is okay to stay on current floor with current level of monitoring. But continue to closely monitor and notify of any changes.
--- NOTE | 2018-03-02 15:16 | NUR ---
patient npo for possible sx. therapy evals in process of eval. Casemgt following for possible HH/skilled at dc.
--- NOTE | 2018-03-02 15:47 | NUR ---
Assumed care of patient at 0700. Blood pressure elevated at beginning of shift; patient's heart rate high at times, up to 120s-130s briefly. Order for IV Digoxin given this morning with improvement in HR and BP. PRN Metoprolol also given x1 with good effect. Otherwise, VSS. Patient maintaining oxygen saturations on 3L NC. Patient SOB this morning - very shallow breaths and RR increased. Patient also very nauseated, PRN Zofran is not helping. Patient with decreased bowel sounds and has complicated bowel history. Order for NG tube placement, KUB and surgery consult. NG tube placed to right nare without difficulty. Verified both with pulling back of gastric contents and ausculatation of air bubble in stomach. Hooked to LIS with 900 mL of brownish, dark green bile within 1 hour. Patient reports feeling much better after NG placement. Breathing has also improved. KUB shows correct placement and no evidence of obstruction. To remain NPO at this time; received nocturnal TPN. Worked with PT this afternoon; up with SBA to BSC and has been up in chair all shift. Dozing on and off - did not sleep last night so is feeling better rested. Daughter has been at bedside throughout day and kept up to date on POC. See previous note regarding Dr. Sykes possible transfer to ICU and update to Dr. Alexandra. Okay to stay on current floor with current monitoring. Continue to closely monitor for any changes. Slowly progressing toward POC. Will continue to monitor.
[2018-03-02 16:43] VITALS: BP 159/76
[2018-03-02 19:35] VITALS: BP 147/71
[2018-03-03] VITALS (7 sets, daily range): BP systolic 138–168; BP diastolic 67–85
--- NOTE | 2018-03-03 05:16 | NUR ---
PATIENT IS ADVANCING SLOWLY IN HER CARE PLAN. VITAL SIGNS STABLE WITH PATIENT HAVING NO COMPLAINTS OF PAIN. PATIENT REMAINED ORIENTED AND ABLE TO PARTICIPATE EFFECTIVELY IN CARE. BREATHING STABLE ON NASAL CANNULA EVIDENCED BY READINGS FROM CONTINUOUS PULSE OX. PATIENT COMPLAINED OF NAUSEA AND WAS TREATED WITH MEDICATIONS AND NON PHARMACOLOGICAL INTERVENTION. NG TUBE PRODUCED AROUND 450 ML'S OVER SHIFT OF DARK GREEN BILE. TPN ADMINISTERED PER ORDER. PATIENT WAS ABLE TO GET TO BEDSIDE COMMODE MULTIPLE TIMES WITH ASSISTANCE INCIDENT FREE. CONTINUE PLAN OF CARE.
[2018-03-03 11:26] LABS: HEMATOCRIT 25.9 % (37.0-47.0); HEMOGLOBIN 8.6 gm/dL (12.0-15.0); MCH 27.9 pg (26.0-34.0); MCHC 33.2 g/dL (28.0-37.0); RBC 3.08 mil/uL (4.20-5.00); RDW 16.7 % (10.5-14.5); WBC 12.8 thou/uL (4.0-11.0)
--- NOTE | 2018-03-03 16:49 | NUR ---
no planned dc overweekend, discussion of taking out NG tube. Patient cont to work with therapy. Casemgt following. DC plan unknown possible transfer to acute care or post acute care stay.
--- NOTE | 2018-03-03 19:41 | NUR ---
Assumed care of patient at 0700. Vitals have been stable. Remains SR on telemetry, BP elevated at times. PO medications discontinued at this time, due to NG tube to LIS. Ordered scheduled IV Metoprolol, which has helped control HR and BP. Alert and oriented x4. Reports feeling much better today. Remains on 2L NC at this time. NG remains to right nare to LIS, decreased NG output this shift compared to yesterday. Positive bowel sounds - 2 small BMs today. Worked with therapies today and doing well. Up with SBA. Up in chair all of shift today. Encouraging deep breathing and coughing. Frequent oral care provided. Progressing towards POC. Will continue to monitor.
[2018-03-04 03:07] LABS: ADENOVIRUS Negative (Negative); INFLUENZA A Negative (Negative); INFLUENZA B Negative (Negative); METAPNEUMOVIRUS Negative (Negative); PARAINFLUENZA 1 Negative (Negative); PARAINFLUENZA 2 Negative (Negative); PARAINFLUENZA 3 Negative (Negative); RHINOVIRUS Negative (Negative); RSV A Negative (Negative); RSV B Negative (Negative)
--- NOTE | 2018-03-04 03:56 | NUR ---
SLEPT MOST OF SHIFT UP IN CHAIR. ASSISTED UP TO COMODE FREQUENTLY. MAINTAIN SAFE ENVIRONMENT. WORKING ON GOALS AND PLAN OF CARE FOR NOC. DENIES COMPLAINTS OF PAIN, SHORTNESS OF AIR, OR NAUSEA. PROGRESSING SLOWLY TOWARDS DISCHARGE GOALS. CONTINUE TO ASSES CLOESLY. NG REMAINS PATENT DRAINING GREEN BILE LIQUID.
[2018-03-04 04:02] VITALS: BP 156/66
[2018-03-04 06:20] LABS: HEMATOCRIT 23.6 % (37.0-47.0); MCH 28.8 pg (26.0-34.0); MCHC 33.9 g/dL (28.0-37.0); MCV 84.9 fL (80.0-100.0); RBC 2.79 mil/uL (4.20-5.00); RDW 17.5 % (10.5-14.5); WBC 9.4 thou/uL (4.0-11.0)
[2018-03-04 06:36] LABS: ALBUMIN 1.8 g/dL (3.4-5.0); CALCIUM 8.7 mg/dL (8.5-10.1); PHOSPHORUS 2.7 mg/dL (2.5-4.9); POTASSIUM 3.8 mmol/L (3.5-5.1)
[2018-03-04 07:16] VITALS: BP 146/64
[2018-03-04 11:42] VITALS: BP 124/59
--- NOTE | 2018-03-04 16:08 | NUR ---
PT IS PROGRESSING TOWARD POC GOALS. NG TUBE REMOVED THIS MORNING BY SURGEON. PT HAS NO C/O OF N/V PRE OR POST REMOVAL OF NG. PT IS TOLERATING LIQUID DIET ADEQUATELY. PT IS UP IN CHAIR FOR MOST OF SHIFT AND REQUIRES X1 SBA WITH TRANSFERS TO BSC AND AMBULATION. IVF INFUSING. PT RESTING COMFORTABLY AT THIS TIME, CALL LIGHT WITHIN REACH.
[2018-03-04 16:24] VITALS: BP 133/63
[2018-03-04 20:33] VITALS: BP 142/61
[2018-03-05 03:21] VITALS: BP 139/61
--- NOTE | 2018-03-05 05:18 | NUR ---
SLEPT MOST OF SHIFT UP IN CHAIR. DENIES COMPLAINTS OF PAIN, NAUSEA, OR SHORTNESS OF BREATH. TOLERATING CLEAR LIQUIDS. MAINTAIN SAFE ENVIRONMENT. WORKING ON GOALS AND PLAN OF CARE FOR NOC. PROGRESSING SLOWLY TOWARDS DISCHARGE GOALS. CONTINUE TO ASSES. TPN AT NOC PER PORT.
[2018-03-05 08:01] VITALS: BP 151/66
[2018-03-05 11:38] VITALS: BP 152/62
--- NOTE | 2018-03-05 16:35 | NUR ---
PT IS PROGRESSING TOWARD POC GOALS. PT HAS NO C/O OF PAIN, N/V THIS SHIFT. PT IS UP IN CHAIR FOR THIS SHIFT, AND FOUND TO BE RESTING COMFORTABLY UPON ROUNDS. IVF INFUSING, IV ABX INFUSING PER ID ORDERS. PT TOLERATING CLEAR LIQUID DIET ADEQUATELY. PT REQUIRES SBA TO BSC. PT'S CALL LIGHT IS WITHIN REACH.
[2018-03-05 17:10] VITALS: BP 129/68
[2018-03-05 19:55] VITALS: BP 149/67
[2018-03-06] VITALS (7 sets, daily range): BP systolic 128–142; BP diastolic 47–72
--- NOTE | 2018-03-06 03:46 | NUR ---
SLEPT MOST OF SHIFT UP IN CHAIR. UP TO COMODE WITH STANDBY ASSIST NEEDED WITH STEADY GAIT. FEELING STRONGER. MAINTAIN SAFE ENVIRONMENT. DENIES COMPLAINTS OF PAIN OR NAUSEA. WORKING ON GOALS AND PLAN OF CARE FOR NOC. PROGRESSING SLOWLY TOWARDS DISCHARGE GOALS. STATES IS GOING TO [facility] UPON DISCHARGE ON TUESDAY OR TUESDAY. CONTINUE TO ASSES. TPN FOR NOC HOURS ONLY.
[2018-03-06 07:15] LABS: HEMATOCRIT 23.2 % (37.0-47.0); HEMOGLOBIN 7.6 gm/dL (12.0-15.0); MCH 28.3 pg (26.0-34.0); MCHC 32.7 g/dL (28.0-37.0); MCV 86.5 fL (80.0-100.0); RBC 2.68 mil/uL (4.20-5.00); RDW 18.2 % (10.5-14.5); WBC 6.5 thou/uL (4.0-11.0)
[2018-03-06 07:23] LABS: CALCIUM 8.5 mg/dL (8.5-10.1); CREATININE 0.9 mg/dL (0.6-1.0); POTASSIUM 4.1 mmol/L (3.5-5.1)
[2018-03-06 08:34] LABS: ABSOLUTE NEUTROPHILS 4.4 thou/uL (1.4-8.2); METAMYELOCYTES 3 %; MYELOCYTES 1 %
[2018-03-06 08:35] LABS: ANISOCYTOSIS 2+; ATYPICAL LYMPHS 1 %; POLYCHROMASIA OCCASIONAL
[2018-03-06 08:37] LABS: OVALOCYTES FEW
[2018-03-06 08:38] LABS: PLATELET COUNT 192 thou/uL (150-400)
[2018-03-06] MEDS ORDERED: CALCIUM 600 +1 EA13 PO (14:11)
[2018-03-06] MEDS ORDERED: LOPRESSOR50 PO (14:11)
[2018-03-06] MEDS ORDERED: DIGOXIN250 MCG PO (14:11)
[2018-03-06] MEDS ORDERED: CEFUROXIME500 MG PO (14:18)
--- NOTE | 2018-03-06 14:50 | NUR ---
Discharge orders received. Discharge diet is written for full liquids / pureed diet. Patient remains on clear liquids here in hospital, has not been advanced. Spoke with Dr. Armendariz regarding diet concerns. To follow up with surgery regarding diet, and if okay, can advance diet, observe patient overnight and then DC home tomorrow if tolerates. Spoke with Dr. Reid regarding diet advancement. Dr. Reid states patient is safe to resume home diet when she feels comfortable. Could DC home on clear liquids and resume pureed diet at home or could advance diet now, but per his perspecitve, okay to advance. Spoke with patient regarding diet; feels could advance from clear liquids and try pureed dinner tonight, but is nervous about discharging today. Would feel more comfortable advancing diet and monitoring overnight to see how she tolerates and then DC home tomorrow. Dr. Armendariz to call for an update later this shift.
--- NOTE | 2018-03-06 15:09 | NUR ---
on-going assessment: CM REVIEWED CHART AND SPOKE WITH ATTENDING. PT IS STILL ON CLEAR LIQUIDS AND TPN AND HER BASELINE IS NOCTURNAL TPN WITH PUREED DIET. BEDSIDE RN DISCUSSED WITH ATTENDING AND PLAN IS TO ADVANCED PATIENTS DIET TODAY WITH POSSIBLE DISCHARGE TOMORROW. CM [facility]IFIED [facility] AND THEY CAN ACCEPT PATIENT FOR HOME HEALTH AT DISCHARGE. CM ALSO NOTIFIED [facility] WHO SUPPLIES PATIENTS TPN AND NOTIFIED THEM WELL FAXED TPN ORDER TO STEFFEN FAX:[phone]. PATIENT WILL BE STAYING WITH HER DAUGHTER MEGHNA AT DISCHARGE AND CM NOTIFIED [facility] AND [facility] OF HER ADDRESS [address] [place] [address]. CM SPOKE WITH DAUGHTER AND PLAN IS LIKELY HOME WITH HH TOMORROW.
--- NOTE | 2018-03-06 15:15 | NUR ---
Assumed care of patient at 0700. Vitals have been stable. Titrated down to RA today and has been maintaining oxygen saturations >95%, even with activity. Denies pain, nausea. Tolerating clear liquid diet. See previous note regarding diet clarification with physicians. Plan to advance diet to home regimen - pureed diet and see how patient tolerates overnight. If tolerates well, will DC home tomorrow. IVF discontinued today, IV medications changed to PO. Working well with therapies. Up in chair throughout shift. Progressing towards POC. Will continue to monitor.
[2018-03-07 04:20] VITALS: BP 141/51
--- NOTE | 2018-03-07 07:47 | NUR ---
Pt. slept intermittently in recliner chair during the night in between getting up to bedside commode. Denies any pain. Tolerating room air well with no reported shortness of breath. Woke up this am complaining of nausea. Zofran given with good relief. Cyclic TPN at HS. Calls appropriately. Progressing towards care plan goals.
[2018-03-07 08:12] VITALS: BP 143/55
[2018-03-07 12:01] VITALS: BP 132/43
[2018-03-07 15:48] VITALS: BP 147/66
--- NOTE | 2018-03-07 16:19 | NUR ---
PT IS PROGRESSING SLOWLY TOWARD POC GOALS. VSS, AFEBRILE. PT RESTED IN CHAIR FOR MOST OF THE SHIFT. PT REPORTS POOR APPETITE, AND NAUSEA THROUGHOUT SHIFT. MEDICATIONS GIVEN PER MAR. PT REQUIRES SBA TO BSC. DISCHARGE ON HOLD D/T LOW HGB, NAUSEA, AND POOR DIET PROGRESSION. CALL LIGHT WITHIN REACH. WILL CONTINUE TO MONITOR THROUGHOUT SHIFT.
[2018-03-07 20:52] VITALS: BP 134/53
--- NOTE | 2018-03-08 04:12 | NUR ---
Pt. slept fair during the night in the recliner chair in between getting up to use the commode. Denies any pain. Pt. spit out small amount of light green emesis this am ( 15 ml ). She stated she did not eat anything after 3 pm yesterday. Zofran given with some relief. Unable to obtain stool sample for OB due to mixed with urine. TPN infusing. Hoping she will go home soon.Will continue to monitor.
[2018-03-08 04:48] LABS: HEMATOCRIT 24.1 % (37.0-47.0); HEMOGLOBIN 7.7 gm/dL (12.0-15.0); MCH 27.6 pg (26.0-34.0); MCHC 31.8 g/dL (28.0-37.0); MCV 86.8 fL (80.0-100.0); RBC 2.78 mil/uL (4.20-5.00); RDW 17.6 % (10.5-14.5); WBC 8.4 thou/uL (4.0-11.0)
[2018-03-08 04:55] VITALS: BP 135/58
[2018-03-08 04:58] LABS: CALCIUM 8.4 mg/dL (8.5-10.1); POTASSIUM 4.1 mmol/L (3.5-5.1)
[2018-03-08 07:58] VITALS: BP 130/46
--- NOTE | 2018-03-08 10:51 | NUR ---
Received d/c order from physician. Called [facility] and faxed orders. Also faxed orders to [facility]. No other needs identified.
[2018-03-08 11:58] VITALS: BP 138/63
[2018-03-08 15:21] VITALS: BP 141/58
--- NOTE | 2018-03-08 15:46 | NUR ---
PT IS PROGRESSING TOWARD POC GOALS. PT HAS NO C/O OF NAUSEA, OR PAIN THIS SHIFT. IV ABX AND MEDICATIONS GIVEN PER MAR. PT REQUIRES SBA TO BR AND WITH AMBULATION. PT TO DISCHARGE HOME THIS AFTERNOON. HH ORDERED FOR TPN INFUSION. AWATING TRANSPORT AT THIS TIME.
[2018-03-08 16:01] VITALS: BP 141/58
== END 2018-03-08 16:03 | disposition home health service (06) | DRG 871 ==
LOC: ER 22:33 → 3W 23:52 → EROBS 23:52 → 3W 02-27 00:40 → ENTRNSPT 03-08 15:39 → 3W 03-08 16:03
PROVIDERS: Emergency Medicine; Internal Medicine; Internal Medicine Infectious Disease; Nurse Practitioner Family; ADMIT Hospitalist
PROC: 0D9670Z Drainage of Stomach with Drainage Device, Via Natural or Artificial Opening (ICD-10-PCS; principal; 2018-03-02)
DX: A41.9 Sepsis, unspecified organism (principal); J18.9 Pneumonia, unspecified organism; N17.9 Acute kidney failure, unspecified; K91.2 Postsurgical malabsorption, not elsewhere classified; E87.3 Alkalosis; K56.51 Intestinal adhesions [bands], with partial obstruction; N18.3 Chronic kidney disease, stage 3 (moderate); E78.5 Hyperlipidemia, unspecified; M06.9 Rheumatoid arthritis, unspecified; R65.20 Severe sepsis without septic shock; D69.6 Thrombocytopenia, unspecified; D64.9 Anemia, unspecified; W18.39XA Other fall on same level, initial encounter; K21.9 Gastro-esophageal reflux disease without esophagitis; K52.9 Noninfective gastroenteritis and colitis, unspecified; I12.9 Hypertensive chronic kidney disease with stage 1 through stage 4 chronic kidney disease, or unspecified chronic kidney disease; B96.1 Klebsiella pneumoniae [K. pneumoniae] as the cause of diseases classified elsewhere; Z60.2 Problems related to living alone; R73.9 Hyperglycemia, unspecified; Z85.038 Personal history of other malignant neoplasm of large intestine; Z85.3 Personal history of malignant neoplasm of breast; Z90.49 Acquired absence of other specified parts of digestive tract; Z88.0 Allergy status to penicillin; Z88.8 Allergy status to other drugs, medicaments and biological substances; Z87.891 Personal history of nicotine dependence; Z79.52 Long term (current) use of systemic steroids; Z68.21 Body mass index [BMI] 21.0-21.9, adult; Z79.899 Other long term (current) drug therapy; Y93.89 Activity, other specified; Y92.89 Other specified places as the place of occurrence of the external cause; Y99.8 Other external cause status
CPT/HCPCS: 10879

== ENCOUNTER 2018-03-15 00:24 | Inpatient (IN) | payer OTHER ==
[2018-03-15] VITALS (7 sets, daily range): BP systolic 98–161; BP diastolic 23–69
[~2018-03-15] VITALS: Ht 165.1 cm; Wt 62.1 kg
[~2018-03-15 00:24] MED LIST changes: +CALCIUM 600 +1 EA13 PO; +CEFUROXIME500 MG PO; +DIGOXIN250 MCG PO; +FOLIC ACID1 MG PO; +LOPRESSOR50 PO; +PROTONIX40 M2 PO
[2018-03-15 01:09] LABS: ABSOLUTE NEUTROPHILS 16.5 thou/uL (1.4-8.2); BASOPHILS 0.1 % (0.0-2.0); EOSINOPHILS 0.1 % (0.0-3.0); HEMATOCRIT 25.1 % (37.0-47.0); LYMPHOCYTES 2.9 % (24.0-44.0); MCH 27.4 pg (26.0-34.0); MCHC 32.1 g/dL (28.0-37.0); MCV 85.5 fL (80.0-100.0); MONOCYTES 1.3 % (1.0-8.0); PLATELET COUNT 196 thou/uL (150-400); POLYS 95.6 % (36.0-66.0); RBC 2.93 mil/uL (4.20-5.00); RDW 18.1 % (10.5-14.5); WBC 17.3 thou/uL (4.0-11.0)
[2018-03-15 01:19] LABS: CALCIUM 8.5 mg/dL (8.5-10.1); POTASSIUM 3.4 mmol/L (3.5-5.1)
[2018-03-15 01:27] LABS: ALBUMIN 2.2 g/dL (3.4-5.0); TOTAL BILIRUBIN 0.6 mg/dL (<0.1-1.0); TOTAL PROTEIN 6.1 g/dL (6.4-8.2); TROPONIN-I 0.1 ng/mL (<0.06)
[2018-03-15 01:33] LABS: URINE CLARITY CLEAR; URINE COLOR YELLOW; URINE GLUCOSE-RANDOM* NEGATIVE (Negative); URINE PROTEIN (DIPSTICK) NEGATIVE (Negative)
[2018-03-15 01:34] LABS: URINE BILIRUBIN NEGATIVE (Negative); URINE BLOOD NEGATIVE (Negative); URINE KETONES NEGATIVE (Negative); URINE LEUKOCYTES-REFLEX NEGATIVE (Negative); URINE NITRITE-REFLEX NEGATIVE (Negative); URINE UROBILINOGEN 0.2 E.U./dl (0.2-1.0)
--- NOTE | 2018-03-15 07:28 | NUR ---
PATIENT WAS A NEW ADMISSION TO THE UNIT THIS SHIFT. SHE ARRIVED VIA CART FROM THE ER AND WAS TRANSFERRED TO THE BED INCIDENT FREE. PATIENT IS ORIENTED AND ABLE TO PARTICIPATE IN ADMISSION AND CALL APPROPRIATELY FOR NEEDS. PATIENT DOES NOT STATE ANY PAIN OR NAUSEA AT THIS TIME. NURSE TO COMPLETE ADMISSION AND INITIATE CARE PLAN.
--- NOTE | 2018-03-15 08:30 | EKG ---
[address] [address] ELECTROCARDIOGRAM REPORT Name: WANDER ZAZUETADavis Howell Room #: 349-I ADM IN M.R.#: [id number] Admission: 03/15/18 Attend Phys: Rome Licona MD Discharge: Date of : 39 Report #: [id number] THIS REPORT FOR: //name// [facility] ED Test Date: 2018-03-15 Test Time: 01:51:59 Pat Name: LORI ZAZUETA Department: Room: 349 Gender: F Optician Apprentice: TIFFANY GAINES : 1935 Requested By: Brandon Hartman Order Number: [id number] MD: Danilo Sykes Measurements Intervals [place] Rate: 107 P: 68 NV: 139 QRS: 37 QRSD: 74 T: 45 QT: 289 QTc: 386 Interpretive Statements Sinus tachycardia Atrial premature complexes Low voltage, extremity leads Artifact V5 Compared to ECG 02/26/2018 22:39:30 Electronically Signed On 03-15-2018 8:30:39 HAND SPLITTER by Danilo Sykes [email or web address] <ELECTRONICALLY SIGNED> By: Danilo Sykes MD 03/15/1830 0151 0151 Danilo Sykes MD /HEATHER
--- NOTE | 2018-03-15 20:21 | NUR ---
PT ALERT AND ORIENTED TIMES FOUR. VSS, 98%RA, SR ON TELE, IVF INFUSING PER ORDER. PT DENIES PAIN/SOA. PT UP TO BSC WITH STANDBY ASSIST. PT TOLERATES SMALL PORTIONS OF MEALS. FAMILY AT BEDSIDE. PT SLOWLY PROGRESSING TOWRADS POC GOALS.
[2018-03-16] VITALS (7 sets, daily range): BP systolic 116–185; BP diastolic 63–93
--- NOTE | 2018-03-16 04:14 | NUR ---
PATIENT IS PROGRESSING IN HER CARE PLAN. VITAL SIGNS STABLE THROUGHOUT SHIFT WITH PATIENT HAVING NO COMPLAINTS OF PAIN OR NAUSEA. PATIENT IS ALERT AND ORIENTED AND ABLE TO CALL APPROPRIATELY FOR NEEDS. BREATHING STABLE ON ROOM AIR EVIDENCED BY SPOT OXYGENATION CHECKS IN ACCEPTABLE RANGE. PATIENT CHECKED FREQUENTLY FOR INCONTINENCE WITH BARRIER CREAM APPLICATION TO PROTECT SKIN. SHE WAS ABLE TO AMBULATE TO BEDSIDE COMMODE MULTIPLE TIMES WITH ASSISTANCE INCIDENT FREE. PATIENT KEPT NPO PER DOCTORS ORDERS WITH BLOOD PRESSURE/HEART RATE MEDICATION SWITCHED TO IV PUSH. CONTINUE PLAN OF CARE.
[2018-03-16 07:12] LABS: MCH 27.6 pg (26.0-34.0); MCV 86.4 fL (80.0-100.0); RBC 2.26 mil/uL (4.20-5.00); RDW 18.2 % (10.5-14.5); WBC 16.8 thou/uL (4.0-11.0)
[2018-03-16 07:17] LABS: HEMATOCRIT 19.6 % (37.0-47.0); HEMOGLOBIN 6.3 gm/dL (12.0-15.0)
[2018-03-16 07:19] LABS: CALCIUM 7.8 mg/dL (8.5-10.1); CREATININE 1.1 mg/dL (0.6-1.0)
--- NOTE | 2018-03-16 15:50 | NUR ---
ASSESSMENT: CM REVIEWED CHART AND MET WITH PATIENT AT THE BEDSIDE. PT IS A&O X4. CM ROLE INTRODUCED. PT WAS RECENTLY DISCHARGED FROM [facility] AND WENT TO STAY AT HER DAUGHTERS HOME AND WAS RECEIVING SERVICES THROUGH [facility] AND [facility] WAS SUPPLYING TUBE FEEDS. CM NOTIFIED [facility] OF PATIENTS ADMISSION AND THEY STATE TO FAX ORDERS IF THEY NEED TO CONTINUE SERVICES WHEN PATIENT DISCHARGES. PT REPORTS HER USES A CANE FOR AMBULATION. PT/OT WERE VARIANCED TODAY DUE TO LOW HEMOGLOBIN. CM WILL CONTINUE TO FOLLOW TO ASSIST NEEDED PATIENT WILL BENEFIT FROM HH VS SNF AT DISCHARGE.
--- NOTE | 2018-03-16 19:36 | NUR ---
PT ALERT AND ORIENTED TIMES FOUR, BP ELEVATED ON AND OFF THIS SHIFT SCHEDULED BP MEDS GIVEN WITH SOME RELEIF. ONE UNIT PRBC GIVEN THIS MORNING HGB NOW 8.8. PT DENIES PAIN. PT UP TO BSC WITH ASSIST OF ONE. FAMILY AT BEDSIDE. WILL CONTINUE TO MONITOR.
[2018-03-17] VITALS (7 sets, daily range): BP systolic 164–175; BP diastolic 72–88
--- NOTE | 2018-03-17 03:10 | NUR ---
ASSUMED PT CARE AROUND 1900. A&OX4. DENIES ANY PAIN. BLOOD GLUCOSE LOW AT BEGINNING OF SHIFT. PT WAS ASYMPTOMATIC BUT BG DID NOT RESPOND TO JUICE. NOTIFIED PHOTOGRAPH FINISHER RN TELEPHONE TRIAGE. GIVEN 1 AMP D50 PER HYPOGLYCEMIA PROTOCOL. BG IMPROVED. PT C/O NAUSEA AND FEELING TOO FULL AFTER DRINKING JUICE. ZOFRAN GIVEN. PT RESTING AT THIS TIME. PROGRESSING SLOWLY TOWARD POC GOALS. FALL PRECAUTIONS IN PLACE WILL CONTINUE TO MONITOR FURTHER.
--- NOTE | 2018-03-17 04:54 | NUR ---
PT NOTED TO HAVE BLOOD NOSE THIS AM. STOPPED QUICKLY WITH PRESSURE APPLIED TO NARES. BG 64 THIS AM. GIVEN 1/2 AMP D50. WILL RECHECK AND CONTINUE TO MONITOR. IVF CHANGED PER ORDER.
[2018-03-17 05:51] LABS: ABSOLUTE NEUTROPHILS 13.6 thou/uL (1.4-8.2); BASOPHILS 0.2 % (0.0-2.0); EOSINOPHILS 0.2 % (0.0-3.0); HEMATOCRIT 24.6 % (37.0-47.0); HEMOGLOBIN 8.4 gm/dL (12.0-15.0); LYMPHOCYTES 6.2 % (24.0-44.0); MCH 28.9 pg (26.0-34.0); MCHC 34.2 g/dL (28.0-37.0); MCV 84.6 fL (80.0-100.0); MONOCYTES 6.2 % (1.0-8.0); PLATELET COUNT 150 thou/uL (150-400); POLYS 87.2 % (36.0-66.0); RBC 2.91 mil/uL (4.20-5.00); WBC 15.6 thou/uL (4.0-11.0)
[2018-03-17 06:10] LABS: CREATININE 0.9 mg/dL (0.6-1.0); POTASSIUM 3.6 mmol/L (3.5-5.1); TOTAL PROTEIN 5.8 g/dL (6.4-8.2)
--- NOTE | 2018-03-17 14:22 | NUR ---
Nutrition: Following G J tube placement, recommend start Vital 1.2 at 20 mL/hr to reach goal of 50 mL/hr.
--- NOTE | 2018-03-17 15:57 | NUR ---
ON-GOING ASSESSMENT: PATIENT IS TO HAVE GJ TUBE PLACED. IF PATIENT IS MEDICALLY STABLE TO DISCHARGE OVER THE WEEKEND WITH HH, [facility] CAN ACCEPT HER BACK IN SERVICES AND WILL NEED TO BE CONTACTED AT [phone] AND DISCHARGE ORDERS FAXED TO [phone].
--- NOTE | 2018-03-17 18:27 | NUR ---
VSS-AFEBRILE. LUNGS DIMINISHED IN ALL FERNANDZE BILATERALLY. OOB MULTIPLE TIMES THROUGH SHIFT TO AMBULATE ABOUT ROOM, STEADY ON FEET. EDUCATED ON CONTINUED USE OF INCENTIVE SPIROMETER, ABLE TO DEMONSTRATE EFFECTIVE USE. IR TO PLACE GJ TUBE ON TUESDAY, . PATIENT TOLD THIS INFORMATION AND WILL RELAY MESSAGE TO HER FAMILY. TOLERATED PUREED DIET WITH NO REPORTED N/V. NO C/O PAIN.
--- NOTE | 2018-03-18 03:57 | NUR ---
PATIENT IS ALERT AND ORIENTED. PATIENT IS SBA WITH WALKER TO BSC OR BATHROOM. PATIENT HAS STRESS INCONTIENCE. PATIENT IS ON 2L NC. PATIENT BLOOD SURGAR IS MONITORED JUICE GIVEN SEVERAL TIMES. PATIENT DENIES PAIN OR NAUSEA. PATIENTS BP IS ELEVATED TREATED WITH LOPRESSOR. PATIENT IS RESTING COMFORTABLEY IN BED. WCM. PATIENT IS PROGRESSING TO GOALS. PENDING IR J TUBE PLACEMENT TUESDAY.
[2018-03-18 05:42] VITALS: BP 178/69
[2018-03-18 05:42] LABS: HEMATOCRIT 25.9 % (37.0-47.0); HEMOGLOBIN 8.6 gm/dL (12.0-15.0); MCH 28.3 pg (26.0-34.0); MCHC 33.2 g/dL (28.0-37.0); MCV 85.2 fL (80.0-100.0); RBC 3.04 mil/uL (4.20-5.00); RDW 17.1 % (10.5-14.5); WBC 8.4 thou/uL (4.0-11.0)
[2018-03-18 05:58] LABS: CREATININE 0.9 mg/dL (0.6-1.0); POTASSIUM 3.1 mmol/L (3.5-5.1)
[2018-03-18 07:19] VITALS: BP 154/96
[2018-03-18 10:38] VITALS: BP 171/80
--- NOTE | 2018-03-18 13:37 | NUR ---
ASSUMED CARE OF PT 0700.VSS, DENIES NAUSEA AND PAIN, UP WITH MIN ASSIST TO COMMODE COMPLAINS OF STRESS INCONTINENCE. ENCOURAGED FLUIDS AND EATING AT LEAST 50% OF MEALS. PT AND DAUGHTER UNDERSTAND PROCEDURE FOR JTUBE IS LIKELY ON TUESDAY. FALL PRECAUTIONS IN PLACE. CALLS APPROPRIATELY. CALL LIGHT IN REACH.
[2018-03-18 15:56] VITALS: BP 155/74
[2018-03-18 19:18] VITALS: BP 171/65
--- NOTE | 2018-03-19 02:28 | NUR ---
PATIENT IS ALERT AND ORIENTED. PATIENT IS SBA TO THE BSC. PATIENT IS ON 1.5L NC. PATIENTS BLOOD SURGAR WAS STEADY THOUGHOUT THE DAY. PATIENTS LBM WAS THE . PATIENT IS PENDING J TUBE PLACEMENT ON TUESDAY. PATIENT HAD SOME NAUSEA IT WAS TREATED WITH MEDICATION. PATIENT IS SLEEP IN CHAIR. PATIENT IS RESTING COMFORTABLEY. PATIENT IS NSR ON TELE. PATIENT IS PROGRESSING TO GOALS. WCM.
[2018-03-19 03:05] VITALS: BP 175/81
[2018-03-19 07:15] VITALS: BP 166/109
[2018-03-19 10:50] VITALS: BP 173/67
[2018-03-19 15:16] VITALS: BP 145/118
--- NOTE | 2018-03-19 17:59 | NUR ---
ASSUMED PATIENT CARE AT 0700. A/O X4. SLEEP ON CHAIR. POOR APPETITE. FIVE TIMES SMALL BM. IR CONSULTED FOR G TUBE TOMORROW. AFEBRILR. NOT TOWARDS POC GOALS.
[2018-03-19 19:05] VITALS: BP 153/64
[2018-03-20 03:57] VITALS: BP 174/67
--- NOTE | 2018-03-20 06:20 | NUR ---
PT IS ASKING A LOT OF QUESTIONS I CAN NOT ANSWER ABOUT THE CJ TUBE. PHYSICIAN NOTE SAYS THEY HAVE SPOKE TO DAUGHTERS AT LENGTH ABOUT OPTIONS. MS. SANDOVAL IS ASKING ABOUT SOMEHTING THEY WILL STICK DOWN HER THROAT. I SAID I WILL PASS THIS TO NEXT SHIFT. PT REMAINS CORDIAL, WHILE VSS AND NO OTHER COMPLIANTS.
[2018-03-20 07:27] VITALS: BP 155/58
[2018-03-20 13:35] LABS: INR 1.2; PROTIME 12.3 Seconds (9.3-11.4)
--- NOTE | 2018-03-20 14:23 | NUR ---
SW reviewed chart and spoke with nursing and attending physician. Pt is scheduled to have GJ tube placed today in IR . Pt remains on IV abx: ceftriaxone. Portacath will be discontinued. Therapy is working with pt to recommend discharge disposition. [facility] is following for possible admission to inpt acute rehab. [facility] used [facility] past for [facility]. SW is following to assist as needed with discharge planning.
[2018-03-20 15:41] VITALS: BP 135/64
--- NOTE | 2018-03-20 18:08 | NUR ---
ASSUMED PATIENT CARE AT 0700. A/O X4. IR NOT ABLE TO PLACE GJ TUBE TODAY. UPDATE WITH PATIENT'S DAUGHTER. VSS. NO N/V. MICHELLE GALVANITOR.
[2018-03-20 19:38] VITALS: BP 149/59
[2018-03-21 03:30] VITALS: BP 143/70
[2018-03-21 05:24] LABS: CALCIUM 7.6 mg/dL (8.5-10.1); CREATININE 0.9 mg/dL (0.6-1.0); MAGNESIUM 1.3 mg/dL (1.8-2.4)
[2018-03-21 05:37] LABS: ABSOLUTE NEUTROPHILS 5.7 thou/uL (1.4-8.2); BASOPHILS 0.8 % (0.0-2.0); EOSINOPHILS 0.7 % (0.0-3.0); HEMOGLOBIN 9.1 gm/dL (12.0-15.0); LYMPHOCYTES 16.2 % (24.0-44.0); MCH 27.6 pg (26.0-34.0); MCHC 32.4 g/dL (28.0-37.0); MCV 85.3 fL (80.0-100.0); MONOCYTES 7.8 % (1.0-8.0); PLATELET COUNT 129 thou/uL (150-400); POLYS 74.5 % (36.0-66.0); POTASSIUM 2.6 mmol/L (3.5-5.1); RBC 3.28 mil/uL (4.20-5.00); RDW 16.8 % (10.5-14.5); WBC 7.7 thou/uL (4.0-11.0)
--- NOTE | 2018-03-21 07:32 | NUR ---
SLEPT MOST OF SHIFT UP IN CHAIR. ASSIST UP TO COMODE WITH STANDBY ASSIST. NEW ORDER IN THIS AM FOR NPO WITH BREAKFAST FOR PORT REMOVAL. DENIES COMPLAINTS OF PAIN OR NAUSEA AT THIS TIME. WORKING ON GOALS AND PLAN OF CARE FOR NOC. NOT PROGRESSING TOWARDS DISCHARGE GOALS. CONTINUE TO ASSES CLOESLY.
[2018-03-21 08:00] VITALS: BP 158/65
--- NOTE | 2018-03-21 14:40 | NUR ---
MILLIE received call from attending physician. Pt went down to have GJ tube today per surgery. Tube was unable to be placed, due to not having a G-tube long enough to pass beyond the point of bowel obstruction. Pt is able to have liquids. Pt had mediport removed and does not have access for adequate nutrition until blood cultures are negative. Pt has been on TPN. Surgery recommends that pt be transferred to a facility with higher level of care. The [facility] in [place], [place] was recommended. Pt and family are aware if need for higher level of care and referral/transfer to [facility]. MILLIE placed call to the [facility] transfer center and spoke with Cris. Provided clinical info and contact info for attending physician. MILLIE faxed requested clinical info for review, along with surgeon's office number. Awaiting call back at this time. [facility] ambulance form placed on pt's chart. MILLIE updated attending physician and nursing. MILLIE is following to assist as needed with discharge planning. [facility]-- [address] [place] [address] Transfer Center--
[2018-03-21 16:00] VITALS: BP 167/70
--- NOTE | 2018-03-21 18:10 | NUR ---
ASSUMED PATIENT CARE AT 0700. A/O X4. PATIENT GOT LEFT PORT CATH REMOVED. PLANNING TRANSFER PATIENT TO [facility] TO HAVE GJ TUNE PLACED. MEDICAL RELEASE FROM SEND TO [facility] TO GET IMAGES FOR [facility]. VSS. AFEBRILE. NO N/V. SLOWLY TOWARDS POC GOALS.
[2018-03-21 21:32] VITALS: BP 165/63
[2018-03-22 00:57] LABS: MAGNESIUM 1.2 mg/dL (1.8-2.4); POTASSIUM 3.4 mmol/L (3.5-5.1)
--- NOTE | 2018-03-22 03:45 | NUR ---
PATIENT IS SLOWLY PROGRESSING IN HER CARE PLAN. VITAL SIGNS STABLE WITH PATIENT HAVING NO COMPLAINTS OF PAIN OR NAUSEA. PATIENT REMAINED ORIENTED AND ABLE TO CALL APPROPRIATELY FOR NEEDS. SHE WAS A LITTLE FORGETFUL AROUND THE 0400 ASSESSMENT BUT WAS ABLE TO ANSWER QUESTIONS MOSTLY APPROPRIATELY. ELECTROLYTE REPLACEMENT WITH PATIENT PUT ON POTASSIUM AND MAGNESIUM PROTOCOL. PATIENT KEPT NPO FROM 1500 IN ACCORDANCE TO HER CARE PLAN. PATIENT HAS BEEN ABLE TO AMBULATE TO BEDSIDE COMMODE MULTIPLE TIMES WITH ASSISTANCE INCIDENT FREE. SHE IS CONSIDERED A HIGH FALL RISK. [facility] CONTACTED AND NURSING STAFF WILL REACH OUT TO RADIOLOGY DEPARTMENT TOMORROW FOR INFORMATION FOR PATIENTS TRANSFER. CONTINUE PLAN OF CARE.
[2018-03-22 04:08] VITALS: BP 166/65
[2018-03-22 09:18] VITALS: BP 180/74
[2018-03-22 12:00] VITALS: BP 174/75
--- NOTE | 2018-03-22 13:15 | NUR ---
CONSULTED TO PLACE A PICC FOR A PATIENT NEEDING UROLOGIST PHYSICIAN ANTIBIOTICS AND TPN. THE PATIENTS PORT WAS REMOVED YESTERDAY DUE TO INFECTION. LINE ORDERED BY DR. STEPHENS AND APPROVED BY DR. PRESLEY. THE ORDER AND CONSNT WAS NOTED AND THE PROCEDURE WELL THE BENIFITS AND RISKS WERE DISCUSSED WITH THE PATIENT AND SHE VERBALIZED UNDERSTANDING. THE RIGHT UPPER ARM BASILIC WAS WIDLEY PATENT. A #5F POWER PICC WAS PLACED PER HOSPITAL POLICY. THE LINE WAS TRIMMED TO 37CM AND ADVANCED WITHOUT DIFFICULTY. LINE SECURED. A STAT CHEST XRAY WAS ORDERED AND CONFIRMED BY THE RADIOLOGIST TO BE IN PROPER POSITION AT THE CAVD ATRIAL JUNCTION. LINE RELEASED FOR USE
--- NOTE | 2018-03-22 14:46 | NUR ---
MILLIE received call from attending last evening, who had spoken with transfer physician, Dr. Omalley, at the [facility]. [facility] requests additional info and radiology discs to be mailed to them via FedEx. MILLIE reviewed chart and spoke with nursing and attending physician. Pt to have PICC line placed today. Pt will need IV abx. MILLIE obtained radiology disc from [facility] and [facility]. MILLIE spoke with Cris at [facility] Transfer Center to provide update and to notify of status of radiology discs. MILLIE confirmed mailing address: [facility] [address] [place] [address]. MILLIE took radiology discs to Christ in the office mail clerk, who will send via Fed Ex. MILLIE met with pt at bedside to provide update. Pt is aware and agreeable with plan to transfer to [facility] if accepted. MILLIE updated pt s nurse, attending physician and surgeon. MILLIE is following to assist as needed with discharge planning.
[2018-03-22 17:05] VITALS: BP 174/67
--- NOTE | 2018-03-22 18:56 | NUR ---
ASSUMED PATIENT CARE AT 0700. A/O X4. CONFUSED SOMETIMES. PICC LINE INSERT TO RIGHT ARM. WILL START TPN TONIGHT. ELEVATED BP. DENIAES PAIN. SLOWLY TOWARDS POC GOALS,
[2018-03-22 19:39] VITALS: BP 166/63
--- NOTE | 2018-03-23 03:59 | NUR ---
PATIENT IS SLOWLY PROGRESSING IN HER CARE PLAN. VITAL SIGNS STABLE WITH PATIENT HAVING NO COMPLAINTS OF PAIN. PATIENT DID COMPLAIN OF NAUSEA AND VOMITED ONCE AT START OF SHIFT. NURSE TREATED FREQUENTLY WITH MEDICATION AND NON PHARMACOLOGICAL INTERVENTION. PATIENT REMAINS ORIENTED AND ABLE TO CALL APPROPRIATELY FOR NEEDS AND PARTICIPATE IN CARE PLAN. PATIENT HAS BEEN UP FREQUENTLY TO BEDSIDE COMMODE WITH ASSISTANCE INCIDENT FREE. PPN STARTED TODAY WITH TPN SCHEDULED FOR TOMORROW. PATIENT IS STILL CURRENTLY AWAITING POSSIBLE DISCHARGE TO [facility]. CONTINUE PLAN OF CARE.
[2018-03-23 04:20] VITALS: BP 150/60
[2018-03-23 05:31] LABS: ALBUMIN 1.7 g/dL (3.4-5.0); CALCIUM 7.9 mg/dL (8.5-10.1); PHOSPHORUS 4.1 mg/dL (2.5-4.9); POTASSIUM 4.3 mmol/L (3.5-5.1); TOTAL BILIRUBIN 0.5 mg/dL (<0.1-1.0); TOTAL PROTEIN 5.2 g/dL (6.4-8.2)
[2018-03-23 07:19] VITALS: BP 165/65
[2018-03-23 07:32] VITALS: BP 114/81
[2018-03-23 12:40] VITALS: BP 172/72
--- NOTE | 2018-03-23 13:52 | NUR ---
MILLIE reviewed chart and spoke with nursing and attending physician. Pt remains stable at this time. Radiology discs were sent via Fed Ex to [facility]. Awaiting response from [facility] at this time. MILLIE updated surgeon as well. MILLIE is following to assist as needed with discharge planning.
[2018-03-23 15:47] VITALS: BP 176/63
--- NOTE | 2018-03-23 18:47 | NUR ---
PATIENT CONTINUED TO HAVE NAUSEA NAD VOMITING THIS PM. COMPAZINE AND ZOFRAN DID NOT SEEM TO BE HELPING HER NAUSEA. DR STEPHENS CONTACTED AND NEW ORDER TO INSERT NG TUBE. NG TUBE INSERTED AND 2.2L of greenish fluids colleced. ALSO NEW ORDER TO DO KUB IN AM. PATIENT EDUCATED ON HOW NG TUBES FUNCTIONS BEFORE INSERTION AND SHE VOICED UNDERSTANDING. WILL CONT WITH PLAN OF CARE.
[2018-03-23 20:26] VITALS: BP 156/59
--- NOTE | 2018-03-24 05:09 | NUR ---
PATIENT IS PROGRESSING IN HER CARE PLAN. VITAL SIGNS STABLE WITH PATIENT HAVING NO COMPLAINTS OF PAIN OR NAUSEA THIS SHIFT. PATIENT HAS NG TUBE SET TO LOW INTERMITTENT SUCTION DUE TO PREVIOUS NAUSEA. 850 DARK GREEN OUTPUT. PATIENT ALSO COMPLAINED OF CRAMPING AND WAS TREATED WITH PRN MEDICATION. ORIENTED THROUGHOUT SHIFT, PATIENT WAS ABLE TO PARTICIPATE IN CARE PLAN AND CALL APPROPRIATELY FOR NEEDS. TPN THROUGHOUT NIGHT PER DOCTORS ORDERS WITH NPO ONLY BROKEN FOR MED SIPS AND ICE CHIPS FOR COMFORT. PATIENT UP MULTIPLE TIMES WITH ASSISTANCE INCIDENT FREE. STILL AWAITING POSSIBLE TRANSFER TO [facility]. CONTINUE PLAN OF CARE.
[2018-03-24 05:29] VITALS: BP 163/63
[2018-03-24 05:59] LABS: CALCIUM 8.3 mg/dL (8.5-10.1); POTASSIUM 3.7 mmol/L (3.5-5.1)
[2018-03-24 07:15] VITALS: BP 1465/66
[2018-03-24 13:28] VITALS: BP 146/58
[2018-03-24 13:55] VITALS: BP 109/49
--- NOTE | 2018-03-24 14:42 | NUR ---
MILLIE reviewed chart and spoke with nursing, attending physician and surgeon. Radiology discs have been sent via Fed Ex to the [facility]. Awaiting input from [facility] at this time. MILLIE met with pt at bedside to provide update. Pt has NG tube in place. Pt is aware of transfer process and agreeable with plan. MILLIE spoke with Chris in the transfer center at [facility] to notify of discs that should be arriving soon. MILLIE also provided surgeon's contact info. MILLIE is following to assist as needed with discharge planning.
[2018-03-24 16:10] VITALS: BP 160/61
--- NOTE | 2018-03-24 19:29 | NUR ---
ASSUMED PATIENT CARE AT 0700. A/O X4. FORGETFUL. NG TUNE TO LIS GOT 300ML OUT ON THIS SHFIT. NO N/V. SLOWLY TOWARDS POC GOALS.
[2018-03-24 19:30] VITALS: BP 139/54
[2018-03-25 03:18] VITALS: BP 157/55
--- NOTE | 2018-03-25 04:08 | NUR ---
tpn infusing as ordered for her nocturnal dose. denies pain. resting in recliner tonight. calls for assist up to the bsc. continues on ng tube suction/decompression. progressing slowly toward discharge goals. no concerns voiced.
[2018-03-25 08:15] LABS: CALCIUM 8.1 mg/dL (8.5-10.1); CREATININE 0.9 mg/dL (0.6-1.0); PHOSPHORUS 2.9 mg/dL (2.5-4.9); POTASSIUM 3.4 mmol/L (3.5-5.1)
[2018-03-25 08:52] VITALS: BP 139/53
[2018-03-25 16:37] VITALS: BP 176/61
--- NOTE | 2018-03-25 18:41 | NUR ---
PATIENT CONT ON NG TUBE FOR DECOMPRESSION. SHE ALSO HAD SOME MEDICATIONS THROUGH TUBE. NO NAUSEA TODAY. SHE IS GETTING ALL OF HER CALORIC NEEDS VIA TPN. SHE DOES NOT SEEM TO BE IN PAIN AT THIS. FAMILY HERE WITH QUESTIONS ANSWERED THEM. STILL AWAITING [facility] ADMISSION. WILL CONT WITH PLAN OF CARE.
[2018-03-25 19:58] VITALS: BP 164/58
--- NOTE | 2018-03-26 02:44 | NUR ---
PATIENT IS ALERT X 4. SKIN WARM AND DRY. RESP EVEN AND UNLABORED. SAT UP IN CHAIR ALL NIGHT. TPN STARTED ORDERED. LUNGS CTA-DISM. NO EDEMA NOTED TO LOWER EXTREMITIES. HYPO ACTIVE BS. STAND WITH 1 PERSON ASSIST. 02 AT 2LNC. DENIES ANY SOA. NO WOUNDS NOTED. MTELE- SHOWS NSR-SB. NPO EXCEPT FOR MEDS. HAS A LEFT NARE N-G TUBE WITH GREENISH RETURN IS ON LOW INTERMITTANT. 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 RIGHT ARM PICC NOTED AND FLUSHES WELL. NO NAUEAS STATED. ALSO NO PAIN STATED. CONT PURVIS OF CARE. VOIDS WELL TO BSC WITH ASSISTANCE. CONT PLAN OF CARE AND WAITING ON [place] FOR FURTHER ADMISSION.
[2018-03-26 04:36] VITALS: BP 155/52
[2018-03-26 05:44] LABS: HEMATOCRIT 25.3 % (37.0-47.0); HEMOGLOBIN 8.6 gm/dL (12.0-15.0); MCH 29.4 pg (26.0-34.0); MCV 86.5 fL (80.0-100.0); RBC 2.92 mil/uL (4.20-5.00); RDW 17.8 % (10.5-14.5); WBC 9.4 thou/uL (4.0-11.0)
[2018-03-26 05:57] LABS: CALCIUM 8.1 mg/dL (8.5-10.1); CREATININE 0.8 mg/dL (0.6-1.0); MAGNESIUM 2.2 mg/dL (1.8-2.4); PHOSPHORUS 2.8 mg/dL (2.5-4.9); POTASSIUM 3.6 mmol/L (3.5-5.1)
[2018-03-26 07:24] VITALS: BP 171/68
[2018-03-26 11:38] VITALS: BP 172/75
[2018-03-26 16:31] VITALS: BP 183/63
--- NOTE | 2018-03-26 18:35 | NUR ---
ASSUMED PATIENT CARE AT 0700. NO CHANGE ON THIS SHIFT. NG TUBE CLAMPED. TOLERATED CLEAR LIQID DIET BUT ONLY TAKE ICE CHIPS. SLOWLY TOWARDS POC GOALS.
[2018-03-26 19:42] VITALS: BP 168/63
--- NOTE | 2018-03-27 02:18 | NUR ---
calls approp for assist up to the bsc. she is awaiting news regarding the plan for further care. she is pleasant, but bored.i provided some puzzle sheets for her to keep her mind busy. she is very pleasant and cooperative.slowly progressing toward discharge.
[2018-03-27 04:30] VITALS: BP 172/64
[2018-03-27 05:36] LABS: HEMATOCRIT 26.7 % (37.0-47.0); HEMOGLOBIN 8.8 gm/dL (12.0-15.0); MCH 28.7 pg (26.0-34.0); RBC 3.07 mil/uL (4.20-5.00); RDW 17.5 % (10.5-14.5); WBC 8.3 thou/uL (4.0-11.0)
[2018-03-27 05:52] LABS: ALBUMIN 1.9 g/dL (3.4-5.0); CALCIUM 8.4 mg/dL (8.5-10.1); CREATININE 0.8 mg/dL (0.6-1.0); POTASSIUM 3.5 mmol/L (3.5-5.1); TOTAL BILIRUBIN 0.3 mg/dL (<0.1-1.0); TOTAL PROTEIN 5.5 g/dL (6.4-8.2)
[2018-03-27 07:29] VITALS: BP 164/64
--- NOTE | 2018-03-27 12:48 | NUR ---
MILLIE reviewed chart and spoke with nursing and attending physician. Pt's NG tube has been clamped. Pt is on TPN. MILLIE faxed updated clinical info to the [facility] for review. MILLIE spoke with Cris in the transfer center to provide update. Awaiting radiology disc to arrive. MILLIE ensured that Cris has hospitalist and surgeon's phone numbers. MILLIE is following to assist as needed with discharge planning.
--- NOTE | 2018-03-27 14:38 | NUR ---
Nutrition: Current TPN is meeting 100-108% of needs. Diet order changes noted. Recommend continue present regimen.
[2018-03-27 16:10] VITALS: BP 188/76; BP 191/96
--- NOTE | 2018-03-27 18:21 | NUR ---
assumed patient care at 0700. a/o x4. anxious. ng tube clanp. patient only take ice chip. no v/n. waitting on myao clinc. slowly towards poc goals. patient has elevated bp, phsician aware.
[2018-03-27 19:54] VITALS: BP 176/63
[2018-03-27 23:54] VITALS: BP 172/66
[2018-03-28 03:24] VITALS: BP 177/73
--- NOTE | 2018-03-28 03:51 | NUR ---
ASSUMED PT CARE AROUND 1900. A&OX4. DENIES ANY PAIN, SOA, OR N/V. TPN INFUSING ORDERED. PT REQUESTED TO REMAIN IN CHAIR TONIGHT. TOLERATED WELL. CALLS OUT APPROPRIATELY FOR BSC. NGT REMAINS CLAMPED. FALL PRECAUTIONS IN PLACE. PROGRESSING SLOWLY TOWARD POC GOALS. WILL CONTINUE TO MONITOR FURTHER.
[2018-03-28 07:32] VITALS: BP 141/55
[2018-03-28 11:58] VITALS: BP 132/58
--- NOTE | 2018-03-28 14:42 | NUR ---
MILLIE reviewed chart and spoke with nursing and attending physician. Pt has NG tube clamped at this time and remains on TPN. MILLIE spoke with Cris in the Transfer Center at [facility], who confirms they have all necessary information. Radiology disc arrived yesterday morning. MILLIE met with pt at bedside to provide update. MILLIE also spoke with pt's dtr, Shante, via phone to provide update regarding potential transfer to [facility]. Shante verbalized understanding. MILLIE is following to assist as needed with discharge planning.
--- NOTE | 2018-03-28 14:46 | NUR ---
ASSUMED PATIENT CARE AT 0700. A/O X4. DENIES N/V. NGT TO SUCTION AT [id number] WOODWARD ORDER. NO ANY OUTPUT IN TWO HOURS. NGT DC'D AT 1330 AND STARTED GASTRIC SLEEVE STAGE I. WILL KEEP MONITOR.
[2018-03-28 15:18] VITALS: BP 153/56
[2018-03-28 19:42] VITALS: BP 157/61
[2018-03-29 03:31] VITALS: BP 140/52
--- NOTE | 2018-03-29 04:13 | NUR ---
INTINITATED TPN ACCORDING TO POC. STARTED WITH 80ML/HR X1HR, THEN 160ML HOUR X7HR. PT REFUSING GUIAFEN LIQUID. PT HAD SMALL SOFT BM THAT WAS DARK GREEN. AT APPROX 0200 PT DEVELOPED NOSE BLEED. APPLIED PRESSURE AND USED SMALL GUAZE TO PLUG THE LEFT NARE. ALSO ORDERED AFRIN (OXYMETAZOLINE HCI). ALSO SATURATED COTTON BALL WITH AFRIN. BLEEDING HAS STOPPED, WILL CONTINUE TO ACCESS AND ROUND.
[2018-03-29 05:39] LABS: CALCIUM 8.5 mg/dL (8.5-10.1); MAGNESIUM 2.4 mg/dL (1.8-2.4); PHOSPHORUS 3.8 mg/dL (2.5-4.9); POTASSIUM 3.7 mmol/L (3.5-5.1)
[2018-03-29 07:29] VITALS: BP 146/53
--- NOTE | 2018-03-29 14:19 | NUR ---
MILLIE reviewed chart and spoke with nursing and attending physician. Pt remains on nocturnal TPN. MILLIE placed call to the transfer center at [facility] and spoke with Ashley. Per Ashley, pt's info/disc has been reviewed by the transfer time and will be forwarded to the GI service for review. MILLIE confirmed that the transfer center has both attending physician (Dr. Potts) and surgeon's contact info. MILLIE updated attending physician. MILLIE is following to assist as needed with discharge planning.
--- NOTE | 2018-03-29 16:48 | NUR ---
ASSUMED PATIENT CARE AT 0700. A/O X4. NO N/V NOTED. PATIENT WALKED WITH PT AND RN IN [address]. TOLERATED VERY WELL. NO BLEEDING NOTED. SLOWLY TOWARDS POC GOALS.
[2018-03-29 16:51] VITALS: BP 181/64
[2018-03-29 19:20] VITALS: BP 157/58
[2018-03-30] VITALS (7 sets, daily range): BP systolic 155–183; BP diastolic 57–67
--- NOTE | 2018-03-30 05:08 | NUR ---
ASSESSED PT THROUGHOUT THE SHIFT FOR A NOSE BLEED. DURING THE SHIFT THERE NO NOSE BLEEDS. FOLLOWING POC AND INFUSING TPN AT APPROPRIATE RATES. PT DID NOT SLEEP MUCH THROUGHOUT SHIFT. PT CALLS ACCORDINGLY TO USE BSC. HOURLY ROUNDING AND ISOLATION PRECAUTIONS BEING FOLLOWED.
--- NOTE | 2018-03-30 14:53 | NUR ---
MILLIE reviewed chart and spoke with nursing and attending physician. MILLIE received call from Vicenta at [facility] yesterday afternoon stating that their teams of physicians did review pt's clinical information and state that they do not have any further recommendations at this time. The [facility] team states that there is not an acute reason for transfer. The [facility] team recommended pt follow up at the local level. However, should pt want to follow up as an outpatient at the [facility], an appt can be scheduled by calling [phone]. MILLIE updated attending physician yesterday afternoon. MILLIE discussed with attending physician and surgeon this morning. Recommendation made for pt to d/c home and continue nocturnal TPN. Pt will need to follow up with Dr. Soto at [facility] as an outpatient. MILLIE spoke with pt's dtrs Shante and Gianfranco via phone to provide updates and discuss discharge plan. Pt will d/c home with Gianfranco and resume nocturnal TPN. Pt's dtr does request HH services through [facility]. Pt has used [facility] in the past. MILLIE explained that ID will make recommendation for abx. Pt is currently on IV abx. Pt's dtr states they would be agreeable with home IV abx if needed. Awaiting input from ID. MILLIE is following to assist as needed with discharge planning.
--- NOTE | 2018-03-30 15:52 | NUR ---
Assumed care of patient at 0700. Vitals have been stable. No complaints of pain. Alert and oriented x4. Patient denies nausea this shift. On clear liquid / gastric sleeve diet and is tolerating well, but takes very little PO intake. Right upper PICC line intact. IV antibiotics as scheduled. Received TPN at night. Fall precautions in place. Patient up with SBA to BSC or chair. Worked with therapies today. Patient reports nose bleed this afternoon, used nasal spray at bedside. This RN did not witness any bleeding. 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 Progressing towards POC. Will continue to monitor.
--- NOTE | 2018-03-31 03:59 | NUR ---
SLEPT MOST OF SHIFT. UP TO COMODE WITH STANDBY ASSIST. TOLERATING TPN. DENIES COMPLAINTS OF PAIN, NAUSEA OR SHORTNESS OF AIR. PROGRESSING TOWARDS TRANSFER GOALS TO [facility] [place]. WORKING ON GOALS AND PLAN OF CARE FOR NOC. MAINTAIN SAFE ENVIRONMENT. CONTINUE TO ASSES.
[2018-03-31 04:51] VITALS: BP 178/60
[2018-03-31 05:19] LABS: CALCIUM 8.6 mg/dL (8.5-10.1); MAGNESIUM 2.2 mg/dL (1.8-2.4); POTASSIUM 3.8 mmol/L (3.5-5.1)
[2018-03-31 07:56] VITALS: BP 188/72
[2018-03-31 12:07] VITALS: BP 166/71
[2018-03-31 13:45] VITALS: BP 172/88
--- NOTE | 2018-03-31 14:09 | NUR ---
DISCHARGE NOTE: MILLIE reviewed chart and spoke with nursing and attending physician. Pt is medically stable for discharge home today. Awaiting final discharge orders at this time. MILLIE discussed case with ID physician. Pt completed her 10-day dose of IV abx today. MILLIE provided updated to [facility] liaison. Pt will resume nocturnal TPN at home. MILLIE spoke with pt's dtr, Gianfranco, via phone to provide update. Gianfranco will be able to transport patient home later this afternoon/evening. Gianfranco states that she received a call from Dr. Soto's office, that pt has an appointment scheduled for Tuesday, 04/04 at 1545. This info placed in pt's discharge summary. digital sales planner to fax clinical info to [facility] for review. Will fax final discharge orders/summary when available to [facility] and [facility]. Contact info for both providers placed in pt's discharge summary. MILLIE is following to finalize discharge.
--- NOTE | 2018-03-31 14:45 | NUR ---
ASSUMED PATIENT CARE AT 0715. A&OX4. NO COMPLAINTS OF PAIN. UP WITH ASSISTX1 WITH GB AND WALKER. BM THIS AM. ON A GASTRIC SLEEVE STAGE ONE DIET. TPN HS. COMPLETED IV ANTIBIOTICS TODAY. CLEARED FOR DC HOME WITH HOME HEALTH. CM ASSISTING WITH DISCHARGE. DAUGHTER NOTIFIED. WAITING FINAL ORDERS.
--- NOTE | 2018-03-31 15:47 | NUR ---
DISCHARGE PLANNING. PATIENT TO DISCHARGE THIS EVENING TO [facility] WITH [facility]. ATTENDING PHYSICIAN TO COMPETE ORDERS. COMMUNICATIONS ASSISTANT PROVIDED WITH FAX COVER SHEETS AND WILL FAX DISCHARGE ORDERS AND DISCHARGE SUMMARY TO BOTH SERVICES ONCE ORDERS OBTAINED. CALL PLACED TO [facility] INTAKE, SPOKE WITH [facility], REFERRAL RECEIVED AND ACCEPTING OF PATIENT. UNIT CM/SW AWARE.
[2018-03-31] MEDS ORDERED: PROBIOTIC1 EAC1 PO (16:01)
[2018-03-31] MEDS ORDERED: TYLENOL325 MG PO (16:01)
[2018-03-31] MEDS ORDERED: LOPRESSOR25 PO (16:01)
[2018-03-31] MEDS ORDERED: BENAZEPRIL HCL5 MG PO (16:01)
[2018-03-31] MEDS ORDERED: FLORANEX GRANU1 EACH PO (16:01)
[2018-03-31] MEDS ORDERED: FLONASE 0.05%50 MCG NASAL (16:02)
[2018-03-31 16:06] VITALS: BP 172/88
== END 2018-03-31 17:20 | disposition home health service (06) | DRG 314 ==
LOC: ER 00:24 → 3W 03:38 → EROBS 03:38 → 3W 04:13 → ENTRNSPT 03-31 17:08 → 3W 03-31 17:20
PROVIDERS: Emergency Medicine; Internal Medicine; Nurse Practitioner Acute Care; Nurse Practitioner Family; Radiology Diagnostic Radiology; ADMIT Internal Medicine
PROC: 3E0336Z Introduction of Nutritional Substance into Peripheral Vein, Percutaneous Approach (ICD-10-PCS; 2018-03-15)
PROC: 30233N1 Transfusion of Nonautologous Red Blood Cells into Peripheral Vein, Percutaneous Approach (ICD-10-PCS; principal; 2018-03-16)
PROC: 0JPT0WZ Removal of Totally Implantable Vascular Access Device from Trunk Subcutaneous Tissue and Fascia, Open Approach (ICD-10-PCS; 2018-03-21)
PROC: 02HV33Z Insertion of Infusion Device into Superior Vena Cava, Percutaneous Approach (ICD-10-PCS; 2018-03-22)
DX: T80.211A Bloodstream infection due to central venous catheter, initial encounter (principal); E43 Unspecified severe protein-calorie malnutrition; J15.0 Pneumonia due to Klebsiella pneumoniae; A41.89 Other specified sepsis; G92 Toxic encephalopathy; K91.2 Postsurgical malabsorption, not elsewhere classified; K56.7 Ileus, unspecified; K56.51 Intestinal adhesions [bands], with partial obstruction; N39.0 Urinary tract infection, site not specified; N17.9 Acute kidney failure, unspecified; K21.9 Gastro-esophageal reflux disease without esophagitis; M06.9 Rheumatoid arthritis, unspecified; D64.9 Anemia, unspecified; I48.91 Unspecified atrial fibrillation; Z60.2 Problems related to living alone; Y83.8 Other surgical procedures as the cause of abnormal reaction of the patient, or of later complication, without mention of misadventure at the time of the procedure; F03.90 Unspecified dementia, unspecified severity, without behavioral disturbance, psychotic disturbance, mood disturbance, and anxiety; R13.10 Dysphagia, unspecified; N18.3 Chronic kidney disease, stage 3 (moderate); E78.5 Hyperlipidemia, unspecified; Z90.49 Acquired absence of other specified parts of digestive tract; Z88.0 Allergy status to penicillin; Z85.038 Personal history of other malignant neoplasm of large intestine; Z85.3 Personal history of malignant neoplasm of breast; Z88.8 Allergy status to other drugs, medicaments and biological substances; Z87.891 Personal history of nicotine dependence; Z79.52 Long term (current) use of systemic steroids; Z68.22 Body mass index [BMI] 22.0-22.9, adult; Y92.89 Other specified places as the place of occurrence of the external cause
CPT/HCPCS: 10879; 27000; 50010; 50101; 50386; 50403; 54118; 56526; 62110; 62850; 70005